=== PATIENT | female | born 1960 | race Caucasian/White ===

== ENCOUNTER 2016-09-11 15:37 | Inpatient (IN) | payer BC ==
[~2016-09-11] VITALS: Ht 149.9 cm; Wt 117.2 kg
[~2016-09-11 15:37] MED LIST: ADVIN25/60 INH; DORZ1SOL6 OPB; FLNIN NAE; MULT-506 PO; OSCAL D PO; PRLSR20 PO; ZIOPTAN OPB
[2016-09-11] MEDS ORDERED: LORAZEPAM 1 MG TAB SL STA (16:09)
[2016-09-11] MEDS ORDERED: CALC200T PO (16:20)
[2016-09-11] MEDS ORDERED: FLNIN NAE (16:21)
[2016-09-11] MEDS ORDERED: HALOPERIDOL LACTATE 5 MG/ML 1 ML VIAL IM STA (16:55)
[2016-09-11 17:27] LABS: BASO % 0.3 %; BASO ABS # 0.05 K/uL (0-0.2); COMPLETE YES; EOS % 1.3 %; HEMATOCRIT 44.7 % (37-47); IG% 0.3 %; LYMPH % 16.4 %; LYMPH ABS # 2.61 K/uL (1.2-3.4); MEAN CELL VOLUME 76.1 fL (80-100); MEAN CORPUSCULAR HEMOGLOBIN 25.6 pg (25-34); MEAN CORPUSCULAR HGB CONC 33.6 g/dl (32-36); MEAN PLATELET VOLUME 9.6 fL (7.4-10.4); NEUT % 74.7 %; PLATELET COUNT 298 K/uL (130-400); RED BLOOD COUNT 5.87 M/uL (4.2-5.4); WHITE BLOOD COUNT 15.88 K/uL (4.8-10.8)
[2016-09-11 17:42] LABS: INR 1.1 (0.9-1.1); PARTIAL THROMBOPLASTIN RATIO 1.3; PROTHROMBIN TIME (PATIENT) 11.4 SECONDS (9.0-12.0)
[2016-09-11 17:56] LABS: ALT/SGPT 42 U/L (12-78); BLOOD UREA NITROGEN 21 mg/dl (7-18); BUN/CREATININE RATIO 23.3 (10-20); CALCIUM 9.7 mg/dl (8.5-10.1); CARBON DIOXIDE 21 mmol/L (21-32); CHLORIDE 101 mmol/L (98-107); CREATININE 0.91 mg/dl (0.60-1.20); GLUCOSE 90 mg/dl (70-99); POTASSIUM 3.7 mmol/L (3.5-5.1); SODIUM 136 mmol/L (136-145)
--- NOTE | 2016-09-11 17:57 | DIAGNOSTIC IMAGING REPORT ---
CT OF THE HEAD WITHOUT CONTRAST CLINICAL HISTORY: Overdose. COMPARISON STUDY: No previous studies for comparison. CT DOSE: 767.83 mGy.cm TECHNIQUE: Helical axial images of the head were obtained without IV contrast. Automated exposure control was utilized for the study. FINDINGS: No acute intracranial hemorrhage, midline shift or mass effect is present. Study is mildly compromised by motion artifact. Ventricular system is normal. Basilar cisterns are patent. There are no extra-axial collections. Francis-white differentiation is maintained. There are no findings to suggest acute dural sinus thrombosis or acute territorial infarct. There are no significant calvarial abnormalities. Visualized portions of the sinuses and mastoid air cells are clear. IMPRESSION: No acute intracranial findings. Electronically signed by: Sylvain Nixon M.D. 09/11/2016 5:56 PM Dictated Date/Time: 09/11/2016 5:54 PM
[2016-09-11 17:59] LABS: ALKALINE PHOSPHATASE 126 U/L (45-117); AST/SGOT 46 U/L (15-37)
[2016-09-11 18:00] LABS: ACETAMINOPHEN < 2 ug/ml (10-30)
--- NOTE | 2016-09-11 18:12 | DIAGNOSTIC IMAGING REPORT ---
CHEST ONE VIEW PORTABLE CLINICAL HISTORY: Overdose COMPARISON STUDY: Chest radiograph August 12, 2012. FINDINGS: Lung volumes are at the lower limits of normal. This is unchanged. There is no evidence of pulmonary edema. No consolidation is present. There is no pneumothorax or pleural effusion. Cardiomediastinal silhouette is stable. IMPRESSION: No acute cardiopulmonary findings. Electronically signed by: Sylvain Nixon M.D. 09/11/2016 6:11 PM Dictated Date/Time: 09/11/2016 6:09 PM
--- NOTE | 2016-09-11 18:32 | EMERGENCY ROOM VISIT NOTE ---
History Report prepared by John: Caleb Portillo Under the Supervision of: Mendez ValleO. First contact with patient: 16:01 Chief Complaint: MENTAL HEALTH EVALUATION Stated Complaint: MENTAL HEALTH History of Present Illness The patient is a 56 year old female who presents to the Emergency Room with complaints of sudden psychosis beginning one day prior to arrival. She associates fatigue for the past several weeks with today's symptoms. The patient states she and her fiance had an engagement part at the [facility] last evening. She notes her fiance received a phone call that his 84 year old mother , which led him to go out and drink and smoke marijuana. The patient states her fiance returned the [facility] and he in front of her this morning. She notes the police came to the hotel and picked up the body. The patient states she called homes to set up a . She notes the police picked up the wrong person, and they were supposed to scrap picker Forest Lozano, who was not her fiance. As per [facility], the patient was evaluated in the field. She notes the supposed fiance called [facility] to confirm that he was alive and is not her fiance. She states the patient does not have a history of mental illness. The patient notes she takes eye drops for her glaucoma and Prilosec. She notes a history of an appendectomy. The patient denies a headache, chest pain, abdominal pain, nausea, vomiting, recent weight gain or weight loss, recent illness, history of cancer, alcohol or tobacco use, recent injuries, hair falling out, thought of hurting herself, hearing voices, feelings of anxiety and depression, and problems with her thyroid. She states she has not been admitted to the hospital in the past five years. The patient notes it has been a while since she had her eye pressure checked or blood pressure checked. 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 A total of 10 systems reviewed and were otherwise negative. Past Medical & Surgical Medical Problems: (1) Asthma, mild persistent (2) GERD (gastroesophageal reflux disease) (3) Glaucoma (4) S/P appendectomy Surgical Problems: (1) H/O wisdom tooth extraction (2) History of appendectomy Family History Cancer Diabetes mellitus Heart disease Hypertension Social History Smoking Status: Never Smoker Marital Status: single Occupation Status: retired Current/Historical Medications Scheduled Calcium Carbonate-Vitamin D (Oscal 500/200 D-3), 1 TAB PO QAM Dorzolamide Hcl-Timolol Maleat (Cosopt Oph), 1 DROP OPB BID Fluticasone Prop/Salmeterol (Advair Diskus 250/50 60 Dose), 1 PUFFS INH BID Fluticasone Propionate (Fluticasone Propionate), 2 SPRAYS MELY QAM Multivitamin (Multivitamin), 1 TAB PO QAM Omeprazole (Prilosec), 20 MG PO QAM [Zioptan], 1 DROP OPB HS Scheduled PRN Albuterol Sulfate (Proventil Hfa), 2 PUFFS INH Q6H PRN for SOB/Wheezing Allergies Coded Allergies: NO KNOWN DRUG ALLERGIES (Verified Allergy, Unknown, ., 09/11/16) Physical Exam Vital Signs Date Time Temp Pulse Resp B/P Pulse Ox O2 Delivery O2 Flow Rate FiO2 09/11/16 20:36 89 138/119 94 09/11/16 19:11 84 18 139/109 09/11/16 19:03 109 161/99 09/11/16 17:48 96 09/11/16 17:32 102 20 190/108 96 Room Air 09/11/16 15:52 36.8 09/11/16 15:44 106 16 187/136 94 Physical Exam GENERAL: Patient is awake, alert, and in no acute distress. Patient is resting comfortably and showing no signs of anxiety EYES: The conjunctivae are clear. The pupils are round and reactive. EARS, NOSE, MOUTH AND THROAT: The nose is without any evidence of any deformity. Mucous membranes are moist tongue is midline NECK: The neck is nontender and supple. RESPIRATORY: Normal respiratory effort is noted there is no evidence of wheezing rhonchi or rales CARDIOVASCULAR: Regular rate and rhythm noted there no murmurs rubs or gallops normal S1 normal S2 GASTROINTESTINAL: The abdomen is soft. Bowel sounds are present in all quadrants. Abdomen is nontender MUSCULOSKELETAL/EXTREMITIES: There is no evidence of gross deformity full range of motion is noted in the hips and shoulders SKIN: There is no obvious evidence of any rash. There are no petechiae, pallor or cyanosis noted. NEUROLOGIC: Patient is awake alert and oriented x3 strength is symmetric patellar reflexes are 2+ bilaterally PSYCH: Patient was awake, alert, and somewhat anxious appearing. She appears very guarded but currently denying any homicidal or suicidal ideation. Medical Decision & Procedures ER Provider Diagnostic Interpretation: Radiology results as stated below per my review and radiologist interpretation: CHEST ONE VIEW PORTABLE CLINICAL HISTORY: Overdose COMPARISON STUDY: Chest radiograph August 12, 2012. FINDINGS: Lung volumes are at the lower limits of normal. This is unchanged. There is no evidence of pulmonary edema. No consolidation is present. There is no pneumothorax or pleural effusion. Cardiomediastinal silhouette is stable. IMPRESSION: No acute cardiopulmonary findings. Electronically signed by: Sylvain Nixon M.D. 09/11/2016 6:[address] OF THE HEAD WITHOUT CONTRAST CLINICAL HISTORY: Overdose. COMPARISON STUDY: No previous studies for comparison. CT DOSE: 767.83 mGy.cm TECHNIQUE: Helical axial images of the head were obtained without IV contrast. Automated exposure control was utilized for the study. FINDINGS: No acute intracranial hemorrhage, midline shift or mass effect is present. Study is mildly compromised by motion artifact. Ventricular system is normal. Basilar cisterns are patent. There are no extra-axial collections. Francis-white differentiation is maintained. There are no findings to suggest acute dural sinus thrombosis or acute territorial infarct. There are no significant calvarial abnormalities. Visualized portions of the sinuses and mastoid air cells are clear. IMPRESSION: No acute intracranial findings. Electronically signed by: Sylvain Nixon M.D. 09/11/2016 5:56 PM Laboratory Results 09/11/16 17:17 Red Blood Count 5.87, Mean Corpuscular Volume 76.1, Mean Corpuscular Hemoglobin 25.6, Mean Corpuscular Hemoglobin Concent 33.6, Mean Platelet Volume 9.6, Neutrophils (%) (Auto) 74.7, Lymphocytes (%) (Auto) 16.4, Monocytes (%) (Auto) 7.0, Eosinophils (%) (Auto) 1.3, Basophils (%) (Auto) 0.3, Neutrophils # (Auto) 11.87, Lymphocytes # (Auto) 2.61, Monocytes # (Auto) 1.11, Eosinophils # (Auto) 0.20, Basophils # (Auto) 0.05 09/11/16 17:17 Test 09/11/16 17:17 09/11/16 17:21 09/11/16 20:04 White Blood Count 15.88 K/uL (4.8-10.8) Red Blood Count 5.87 M/uL (4.2-5.4) Hemoglobin 15.0 g/dL (12.0-16.0) Hematocrit 44.7 % (37-47) Mean Corpuscular Volume 76.1 fL (80-100) Mean Corpuscular Hemoglobin 25.6 pg (25-34) Mean Corpuscular Hemoglobin Concent 33.6 g/dl (32-36) Platelet Count 298 K/uL (130-400) Mean Platelet Volume 9.6 fL (7.4-10.4) Neutrophils (%) (Auto) 74.7 % Lymphocytes (%) (Auto) 16.4 % Monocytes (%) (Auto) 7.0 % Eosinophils (%) (Auto) 1.3 % Basophils (%) (Auto) 0.3 % Neutrophils # (Auto) 11.87 K/uL (1.4-6.5) Lymphocytes # (Auto) 2.61 K/uL (1.2-3.4) Monocytes # (Auto) 1.11 K/uL (0.11-0.59) Eosinophils # (Auto) 0.20 K/uL (0-0.5) Basophils # (Auto) 0.05 K/uL (0-0.2) RDW Standard Deviation 42.0 fL (36.4-46.3) RDW Coefficient of Variation 15.1 % (11.5-14.5) Immature Granulocyte % (Auto) 0.3 % Immature Granulocyte # (Auto) 0.04 K/uL (0.00-0.02) Prothrombin Time 11.4 SECONDS (9.0-12.0) Prothromb Time International Ratio 1.1 (0.9-1.1) Activated Partial Thromboplast Time 34.6 SECONDS (21.0-31.0) Partial Thromboplastin Ratio 1.3 D-Dimer 360 ug/L FEU (0-500) Anion Gap 14.0 mmol/L (3-11) Est Creatinine Clear Calc Drug Dose 75.7 ml/min Estimated GFR () 80.6 Estimated GFR (Non- 69.5 BUN/Creatinine Ratio 23.3 (10-20) Osmolality 291 mOsm/kg (280-300) Calcium Level 9.7 mg/dl (8.5-10.1) Total Bilirubin 0.7 mg/dl (0.2-1) Direct Bilirubin 0.2 mg/dl (0-0.2) Aspartate Amino Transf (AST/SGOT) 46 U/L (15-37) Alanine Aminotransferase (ALT/SGPT) 42 U/L (12-78) Alkaline Phosphatase 126 U/L (45-117) Total Creatine Kinase 788 U/L (26-192) Creatine Kinase MB 19.7 ng/ml (0.5-3.6) Creatine Kinase MB Ratio (0-3.0) Troponin I < 0.015 ng/ml (0-0.045) Total Protein 7.9 gm/dl (6.4-8.2) Albumin 4.0 gm/dl (3.4-5.0) Lipase 181 U/L (73-393) Free Thyroxine 1.22 ng/dl (0.80-1.60) Salicylates Level < 1.7 mg/dl (2.8-20) Acetaminophen Level < 2 ug/ml (10-30) Ethyl Alcohol mg/dL < 3.0 mg/dl (0-3) Bedside Glucose 92 mg/dl (70-90) Laboratory results per my review. Medications Administered Medications (Trade) Dose Ordered Sig/Kylie Route Start Time Stop Time Status Last Admin Dose Admin Lorazepam (Ativan Tab) 1 mg NOW STAT SL 09/11/16 16:09 09/11/16 16:10 DC 09/11/16 17:15 1 MG Metoprolol Tartrate (Lopressor Iv) 15 mg NOW STAT IV 09/11/16 18:53 09/11/16 18:54 DC 09/11/16 19:03 15 MG ECG Indication: altered mental status Rate (beats per minute): 102 Rhythm: sinus tachycardia Findings: no ectopy, other (poor R wave progression) Comparison ECG Date: 08/12/2012 Change: Changes are new. ED Course 1608: The patient was evaluated in room A6. A complete history and physical examination were performed. 1609: Ordered Ativan Tab 1 mg SL. 1655: Ordered Haldol Inj 10 mg IM. 1853: Ordered Lopressor Iv 15 mg IV. 1854: I spoke to Andrew Vallejo (Hospitalist) about the patient's case, and she will follow the patient for further evaluation. Medical Decision Etiologies such as mood disorder, infection, hypoglycemia, electrolyte abnormalities, cardiac sources, intracerebral event, toxicologic, neurologic, as well as others were entertained. Nursing notes reviewed. Additional history is obtained from the [facility] delegate. The patient is a 56-year-old female who presented to the emergency department with a 302 petition for mental health evaluation. The patient had significant psychotic features as well as very poor insight into her overall condition at this time. She had no focal neurologic deficits. She was found have tachycardia and hypertension. Her EKG showed some vague changes compared to previous. The patient does not have a history of psychiatric problems in the past. Given her age and lack of history consistent with psychiatric disease I felt this could be consistent with medical condition. I discussed the patient's laboratory and radiographic studies with her. She was treated with Ativan. She was also treated with beta blockers for elevated blood pressure. I'm unsure at this time if this represents hypertensive encephalopathy or possible he some other underlying issue that is causing this presentation. It still could represent a psychiatric condition however given her laboratory abnormalities I did not feel that she would be medically cleared for formal psychiatric evaluation. For this reason I discussed her case with the on-call Andrew hospitalist group. They have agreed to evaluate the patient in the emergency apartment for further management and disposition. Consults Time Called: [id number] Consulting Physician: Andrew Vallejo (Hospitalist) Returned Call: 1854 I spoke to Andrew Vallejo (Hospitalist) about the patient's case, and she will follow the patient for further evaluation. Impression Primary Impression: Altered mental status Additional Impressions: Psychosis Hypertension Hypertensive encephalopathy Elevated CPK Abnormal EKG Scribe Attestation The scribe's documentation has been prepared under my direction and personally reviewed by me in its entirety. I confirm that the note above accurately reflects all work, treatment, procedures, and medical decision making performed by me. Departure Information Dispostion Being Evaluated By Hospitalist (Andrew Vallejo (Hospitalist)) Referrals Didi Livingston M.D. (PCP) Problem Qualifiers
[2016-09-11] MEDS ORDERED: METOPROLOL TARTRATE 1 MG/ML VIAL IV STA (18:53)
[2016-09-11] MEDS ORDERED: ONDANSETRON INJ 2 MG/ML 2 ML VIAL IV PRN (20:15)
[2016-09-11] MEDS ORDERED: CLONIDINE HCL 0.1 MG TAB PO PRN (20:15)
[2016-09-11] MEDS ORDERED: HALOPERIDOL LACTATE 5 MG/ML 1 ML VIAL IM PRN (20:15)
[2016-09-11] MEDS ORDERED: LORAZEPAM 2 MG/ML 1 ML VIAL IV PRN (20:15)
[2016-09-11] MEDS ORDERED: LORAZEPAM INJ 0.5 MG in SYRINGE 0.75 ML IV PRN (20:45)
[2016-09-11] MEDS ORDERED: ALBUAER INH (20:46)
[2016-09-11] MEDS ORDERED: ALBUTEROL HFA 8 GM INHALER INH PRN (21:00)
[2016-09-11 21:02] VITALS: BP 141/92; PULSE 90; TEMP 36.5; O2SAT 97; Ht 149.9 cm; Wt 117.2 kg
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
[2016-09-11] MEDS: SODIUM CHLORIDE 0.9% 1000ML 1,000 ML IV SCH (21:48)
[2016-09-11] MEDS: FLUTICASONE/SALMETEROL 250/50 (ADVAIR) 14 PUFF/1 INHALER INH SCH (22:47)
[2016-09-11] MEDS: DORZOLAMIDE/TIMOLOL 22.3/6.8MG/ML 10 ML BTL OPB SCH (22:47)
[2016-09-11 23:42] VITALS: BP 126/82; PULSE 90; TEMP 36.8; O2SAT 96
[2016-09-12] VITALS (7 sets, daily range): BP systolic 127–169; BP diastolic 75–106; PULSE 78–96; TEMP 36.4–36.8; O2SAT 95–98
[2016-09-12 02:50] LABS: CHOLESTEROL 149 mg/dl (0-200); CHOLESTEROL/HDL RATIO 2.4; CKMB/CK RATIO 2.3 (0-3.0); HDL CHOLESTEROL 63 mg/dl; LDL CHOLESTEROL CALCULATED 64 mg/dl; TRIGLYCERIDES 112 mg/dl (0-150); VERY LOW DENSITY LIPOPROT CALC 22 mg/dl
[2016-09-12 04:08] LABS: URINE APPEARANCE CLEAR (CLEAR); URINE BILIRUBIN NEG (NEG); URINE COLOR YELLOW; URINE EPITHELIAL CELL AUTO >30 /lpf (0-5); URINE NITRITE NEG (NEG); URINE PH 5.5 (4.5-7.5); URINE SPECIFIC GRAVITY 1.011 (1.000-1.030); UROBILINOGEN NEG (NEG); ZZUR CULT IF INDIC CLEAN CATCH YES
[2016-09-12 04:12] LABS: MANUAL MICROSCOPIC REQUIRED? NO; REVIEW REQ? YES
[2016-09-12] MEDS: SODIUM CHLORIDE 0.9% 1000ML 1,000 ML IV SCH ×3 (04:18→19:51)
[2016-09-12 04:39] LABS: BENZODIAZEPINE, URINE NEG (NEG); COCAINE,URINE NEG (NEG); PHENCYCLIDINE, URINE NEG (NEG)
[2016-09-12] MEDS: FLUTICASONE/SALMETEROL 250/50 (ADVAIR) 14 PUFF/1 INHALER INH SCH ×2 (07:20→19:54)
[2016-09-12] MEDS: CIPROFLOXACIN / D5W 400 MG in PREMIXED IN D5W 200 ML IV SCH ×2 (07:20→19:51)
[2016-09-12] MEDS: CALCIUM 600MG + VIT D 400 IU TAB PO SCH (07:21)
[2016-09-12] MEDS: MULTIVITAMIN TAB PO SCH (07:21)
[2016-09-12] MEDS: FLUTICASONE PROPIONATE NA SPR 16 GM BTL NAE SCH (07:21)
[2016-09-12] MEDS: PANTOprazole SOD 40 MG TAB PO SCH (07:21)
[2016-09-12] MEDS: DORZOLAMIDE/TIMOLOL 22.3/6.8MG/ML 10 ML BTL OPB SCH ×2 (07:22→19:54)
[2016-09-12 08:42] LABS: HEMATOCRIT 41.9 % (37-47); MEAN CELL VOLUME 76.5 fL (80-100); MEAN CORPUSCULAR HEMOGLOBIN 25.2 pg (25-34); MEAN CORPUSCULAR HGB CONC 32.9 g/dl (32-36); MEAN PLATELET VOLUME 9.6 fL (7.4-10.4); PLATELET COUNT 259 K/uL (130-400); RED BLOOD COUNT 5.48 M/uL (4.2-5.4); WHITE BLOOD COUNT 12.39 K/uL (4.8-10.8)
[2016-09-12] MEDS ORDERED: CALCIUM 600MG + VIT D 400 IU TAB PO SCH (09:00)
[2016-09-12 09:29] LABS: BUN/CREATININE RATIO 21.3 (10-20); CALCIUM 8.5 mg/dl (8.5-10.1); CREATININE 0.63 mg/dl (0.60-1.20); POTASSIUM 3.8 mmol/L (3.5-5.1)
[2016-09-12] MEDS ORDERED: PERFLUTREN LIPID MICROSPHERE (DEFINITY) IV ONE (10:07)
[2016-09-12 11:02] LABS: CKMB/CK RATIO 2.4 (0-3.0)
--- NOTE | 2016-09-12 12:53 | Progress Note ---
Internal Med Progress Note Date of Service: Sep 12, 2016. Provider Documentation: SUBJECTIVE: The patient was seen and examined Feels fine Denies any Chest pain,palpitation,sob No abdominal pain,nausea and or vomiting No neurological symptoms Still has Psychiatric symptoms OBJECTIVE: Vital Signs-as noted below Exam: General-No distress at rest Eyes-no distress ENT-normal Neck-normal Lungs-clear to auscultate bilaterally Heart-Regular,no murmur appreciated Abdomen-Benign,no bertrand,bowel sound present Extremities-Trace edema bilaterally Neuro-AAOx3 Lab data as noted below. ASSESSMENT & PLAN: Acute Psychosis -no prior psych history; pt has 302 order -no h/o any Drug use and Tox Screen is negative -doubt any infective process but WCC is increased at 15K -CT head is negative -CXR no evidence of consolidation -Blood and Urine Culture pending -consider one-on-one if pt displays agitation or self harm -consult psychDr. Villavicencio-pending input -Medically stable HYPERTENSIVE URGENCY -no h/o HTN -SPR >190 in ER -pt received Lopressor in ED -started on clonidine PRN -BP remains stable ABNORMAL EKG -EKG sinus tachy with T wave flattening in anterior leads and poor R wave progression with prolonged QTc (477) -CKMB 19.7; Trop negative -check serial cardiac enzymes-negative -doubt any ACS -no CP -Await ECHO ELEVATED CPK -CPK 788; ? mild rhabdo, drug induced, etc -start IVF -CPK is trending down ASTHMA, MILD PERSISTENT -no evidence of acute exacerbation -no wheezing and or SOB GERD -cont PPI GLAUCOMA -cont dorzolamide and Zioptan DVT PROPHYLAXIS -SCDs CODE STATUS -FULL CODE DISPO Will need to go to Psyche Floor Vital Signs: Date Time Temp Pulse Resp B/P Pulse Ox O2 Delivery O2 Flow Rate FiO2 09/12/16 11:41 36.7 84 20 135/83 96 Room Air 09/12/16 07:20 36.5 78 20 127/77 95 Room Air 09/12/16 07:15 Room Air 09/12/16 04:00 36.4 80 20 133/82 96 Room Air 09/12/16 04:00 Room Air 09/12/16 00:00 Room Air 09/11/16 23:42 36.8 90 20 126/82 96 Room Air 09/11/16 21:02 36.5 90 20 141/92 97 Room Air 09/11/16 20:36 89 138/119 94 09/11/16 19:11 84 18 139/109 09/11/16 19:03 109 161/99 09/11/16 17:48 96 09/11/16 17:32 102 20 190/108 96 Room Air 09/11/16 15:52 36.8 09/11/16 15:44 106 16 187/136 94 Lab Results: Results Past 24 Hours Test 09/11/16 17:17 09/11/16 17:21 09/12/16 02:10 09/12/16 03:30 Range/Units White Blood Count 15.88 4.8-10.8 K/uL Red Blood Count 5.87 4.2-5.4 M/uL Hemoglobin 15.0 12.0-16.0 g/dL Hematocrit 44.7 37-47 % Mean Corpuscular Volume 76.1 80-100 fL Mean Corpuscular Hemoglobin 25.6 25-34 pg Mean Corpuscular Hemoglobin Concent 33.6 32-36 g/dl Platelet Count 298 130-400 K/uL Mean Platelet Volume 9.6 7.4-10.4 fL Neutrophils (%) (Auto) 74.7 % Lymphocytes (%) (Auto) 16.4 % Monocytes (%) (Auto) 7.0 % Eosinophils (%) (Auto) 1.3 % Basophils (%) (Auto) 0.3 % Neutrophils # (Auto) 11.87 1.4-6.5 K/uL Lymphocytes # (Auto) 2.61 1.2-3.4 K/uL Monocytes # (Auto) 1.11 0.11-0.59 K/uL Eosinophils # (Auto) 0.20 0-0.5 K/uL Basophils # (Auto) 0.05 0-0.2 K/uL RDW Standard Deviation 42.0 36.4-46.3 fL RDW Coefficient of Variation 15.1 11.5-14.5 % Immature Granulocyte % (Auto) 0.3 % Immature Granulocyte # (Auto) 0.04 0.00-0.02 K/uL Prothrombin Time 11.4 9.0-12.0 SECONDS Prothromb Time International Ratio 1.1 0.9-1.1 Activated Partial Thromboplast Time 34.6 21.0-31.0 SECONDS Partial Thromboplastin Ratio 1.3 D-Dimer 360 0-500 ug/L FEU Sodium Level 136 136-145 mmol/L Potassium Level 3.7 3.5-5.1 mmol/L Chloride Level 101 98-107 mmol/L Carbon Dioxide Level 21 21-32 mmol/L Anion Gap 14.0 3-11 mmol/L Blood Urea Nitrogen 21 7-18 mg/dl Creatinine 0.91 0.60-1.20 mg/dl Est Creatinine Clear Calc Drug Dose 75.7 ml/min Estimated GFR () 80.6 Estimated GFR (Non- 69.5 BUN/Creatinine Ratio 23.3 10-20 Random Glucose 90 70-99 mg/dl Osmolality 291 280-300 mOsm/kg Calcium Level 9.7 8.5-10.1 mg/dl Total Bilirubin 0.7 0.2-1 mg/dl Direct Bilirubin 0.2 0-0.2 mg/dl Aspartate Amino Transf (AST/SGOT) 46 15-37 U/L Alanine Aminotransferase (ALT/SGPT) 42 12-78 U/L Alkaline Phosphatase 126 45-117 U/L Total Creatine Kinase 788 465 26-192 U/L Creatine Kinase MB 19.7 10.8 0.5-3.6 ng/ml Creatine Kinase MB Ratio 2.3 0-3.0 Troponin I < 0.015 < 0.015 0-0.045 ng/ml Total Protein 7.9 6.4-8.2 gm/dl Albumin 4.0 3.4-5.0 gm/dl Lipase 181 73-393 U/L Free Thyroxine 1.22 0.80-1.60 ng/dl Salicylates Level < 1.7 2.8-20 mg/dl Acetaminophen Level < 2 10-30 ug/ml Ethyl Alcohol mg/dL < 3.0 0-3 mg/dl Rapid Plasma Reagin NONREACTIVE NONREACT Bedside Glucose 92 70-90 mg/dl Triglycerides Level 112 0-150 mg/dl Cholesterol Level 149 0-200 mg/dl HDL Cholesterol 63 mg/dl LDL Cholesterol, Calculated 64 mg/dl VLDL Cholesterol, Calculated 22 mg/dl Cholesterol/HDL Ratio 2.4 Urine Color YELLOW Urine Appearance CLEAR CLEAR Urine pH 5.5 4.5-7.5 Urine Specific [place] 1.011 1.000-1.030 Urine Protein NEG NEG Urine Glucose (UA) NEG NEG Urine Ketones 2+ NEG Urine Occult Blood 2+ NEG Urine Nitrite NEG NEG Urine Bilirubin NEG NEG Urine Urobilinogen NEG NEG Urine Leukocyte Esterase SMALL NEG Urine WBC (Auto) 10-30 0-5 /hpf Urine RBC (Auto) 10-30 0-4 /hpf Urine Hyaline Casts (Auto) 5-10 0-5 /lpf Urine Epithelial Cells (Auto) >30 0-5 /lpf Urine Bacteria (Auto) NEG NEG Urine Renal Epithelial Cells 10-20 0-5 /lpf Urine Opiates Screen NEG NEG Urine Methadone, Qualitative NEG NEG Urine Barbiturates NEG NEG Urine Phencyclidine (PCP) Level NEG NEG Ur Amphetamine/Methamphetamine NEG NEG MDMA (Ecstasy) Screen NEG NEG Urine Benzodiazepines Screen NEG NEG Urine Cocaine Metabolite NEG NEG Urine Marijuana (THC) NEG NEG Test 09/12/16 08:33 09/12/16 09:45 Range/Units White Blood Count 12.39 4.8-10.8 K/uL Red Blood Count 5.48 4.2-5.4 M/uL Hemoglobin 13.8 12.0-16.0 g/dL Hematocrit 41.9 37-47 % Mean Corpuscular Volume 76.5 80-100 fL Mean Corpuscular Hemoglobin 25.2 25-34 pg Mean Corpuscular Hemoglobin Concent 32.9 32-36 g/dl RDW Standard Deviation 42.3 36.4-46.3 fL RDW Coefficient of Variation 15.1 11.5-14.5 % Platelet Count 259 130-400 K/uL Mean Platelet Volume 9.6 7.4-10.4 fL Sodium Level 141 136-145 mmol/L Potassium Level 3.8 3.5-5.1 mmol/L Chloride Level 108 98-107 mmol/L Carbon Dioxide Level 23 21-32 mmol/L Anion Gap 10.0 3-11 mmol/L Blood Urea Nitrogen 13 7-18 mg/dl Creatinine 0.63 0.60-1.20 mg/dl Est Creatinine Clear Calc Drug Dose 109.2 ml/min Estimated GFR () 114.6 Estimated GFR (Non- 98.9 BUN/Creatinine Ratio 21.3 10-20 Random Glucose 107 70-99 mg/dl Calcium Level 8.5 8.5-10.1 mg/dl Total Creatine Kinase 340 26-192 U/L Creatine Kinase MB 8.3 0.5-3.6 ng/ml Creatine Kinase MB Ratio 2.4 0-3.0 Troponin I < 0.015 0-0.045 ng/ml Microbiology Results 09/11/16 Blood Culture, Received Pending 09/11/16 Blood Culture, Received Pending 09/12/16 Urine Culture, Received Pending
--- NOTE | 2016-09-12 13:12 | ECHOCARDIOGRAM REPORT ---
*NOTICE TO RECEIVING CONSTITUTION PARTY AGENCY This information is strictly Confidential and protected under [place] law. [place] law prohibits you from making any further disclosure of this information unless further disclosure is expressly permitted by the written consent of the person to whom it pertains or is authorized by law. A general authorization for the release of medical or other information is not sufficient for this purpose. Hospital accepts no responsibility if the information is made available to any other person, INCLUDING THE PATIENT. Interpretation Summary * Name: BRIAN HILL Study Date: 09/12/2016 09:48 AM BP: 133/82 mmHg * Patient Location: .2T\S\S238\S\1 HR: 75 * : 1960 (M/d/yyy) Gender: Female Height: 59 in * Age: 56 yrs Ethnicity: CA Weight: 249 lb * Ordering Physician: Gricelda Jones * Referring Physician: Self, Referred * Performed By: Irwin Ramirez RDCS * * Reason For Study: EKG changes * BSA: 2.0 m2 * -- Conclusions -- * There is moderate concentric left ventricular hypertrophy. * Left ventricular systolic function is normal. * Ejection Fraction = 60-65%. * The left ventricular wall motion is normal. * The right ventricular systolic function is normal. * The left atrial size is normal. * Right atrial size is normal. * No significant valvular pathology Procedure Details * A complete two-dimensional transthoracic echocardiogram was performed (2D, M-mode, Doppler and color flow Doppler). * The study was technically difficult. * The study was technically difficult, but visualization was adequate with the administration of Definity ultrasound contrast. * There were technical limitations due to patient'sbody habitus * A contrast injection of Definity was performed to improve assessment of LV function. * Contrast was injected into an intravenous site in the left arm. * One vial of Definity ultrasound contrast was diluted in normal saline to a total volume of 10 ml. A total of '3' ml of solution was administered during imaging. * Lot # [id number] of Definity utilized for procedure. * Expiration date 1FEB. * The attending nurse who injected the contrast agent was NANY Boyle. Left Ventricle * The left ventricle is normal in size. * There is moderate concentric left ventricular hypertrophy. * Left ventricular systolic function is normal. * Ejection Fraction = 60-65%. * The left ventricular wall motion is normal. Right Ventricle * The right ventricle is normal size. * The right ventricular systolic function is normal. Atria * The left atrial size is normal. * Right atrial size is normal. * The interatrial septum is intact with no evidence for an atrial septal defect. Mitral Valve * There is moderate mitral annular calcification. * The mitral valve leaflets appear thickened, but open well. * Significant mitral regurgitation is absent. Tricuspid Valve * The tricuspid valve is not well visualized. * Significant tricuspid regurgitation is absent. Aortic Valve * The aortic valve is tricuspid. The leaflet thickness if normal. There is no aortic stenosis, and no significant insufficiency. * The aortic valve opens well. * There is no significant aortic regurgitation. Pulmonic Valve * The pulmonic valve is not well visualized. Great Vessels * The aortic root and proximal ascending aorta are normal sized. Pericardium/Pleural * There is no pericardial effusion. MMode 2D Measurements and Calculations IVSd 1.2 cm IVSs 1.6 cm LVIDd 3.9 cm LVIDs 2.5 cm LVPWd 1.3 cm LVPWs 1.7 cm IVS/LVPW 0.89 FS 36.0 % EDV(Teich) 67.2 ml ESV(Teich) 22.7 ml EF(Teich) 66.2 % EDV(cubed) 60.7 ml ESV(cubed) 15.9 ml EF(cubed) 73.8 % % IVS thick 32.0 % % LVPW thick 26.5 % LV mass(C)d 172.3 grams LV mass(C)dI 85.1 grams/m\S\2 LV mass(C)s 146.0 grams LV mass(C)sI 72.1 grams/m\S\2 SV(Teich) 44.5 ml SI(Teich) 22.0 ml/m\S\2 SV(cubed) 44.8 ml SI(cubed) 22.1 ml/m\S\2 Ao root diam 3.1 cm Ao root area 7.3 cm\S\2 ACS 2.0 cm LA dimension 3.8 cm asc Aorta Diam 3.0 cm LA/Ao 1.3 LVOT diam 1.9 cm LVOT area 2.9 cm\S\2 LVAd ap4 25.4 cm\S\2 LVLd ap4 7.5 cm EDV(MOD-sp4) 72.0 ml LVAs ap4 13.2 cm\S\2 LVLs ap4 6.0 cm ESV(MOD-sp4) 24.0 ml EF(MOD-sp4) 66.7 % LVAd ap2 26.0 cm\S\2 LVLd ap2 6.9 cm EDV(MOD-sp2) 82.0 ml LVAs ap2 13.6 cm\S\2 LVLs ap2 6.0 cm ESV(MOD-sp2) 28.0 ml EF(MOD-sp2) 65.9 % SV(MOD-sp4) 48.0 ml SI(MOD-sp4) 23.7 ml/m\S\2 SV(MOD-sp2) 54.0 ml SI(MOD-sp2) 26.7 ml/m\S\2 Doppler Measurements and Calculations MV E max aleja 70.1 cm/sec MV A max aleja 86.4 cm/sec MV E/A 0.81 MV dec time 0.23 sec Ao V2 max 184.6 cm/sec Ao max PG 13.6 mmHg Ao max PG (full) 8.2 mmHg ALIA(V,A) 1.8 cm\S\2 ALIA(V,D) 1.8 cm\S\2 LV V1 max PG 5.4 mmHg LV V1 max 116.6 cm/sec PA V2 max 130.3 cm/sec PA max PG 6.8 mmHg
--- NOTE | 2016-09-12 13:21 | Psychiatric Consultation ---
Consultation Identifying Data Ms. Jessica is a 56 yo female who lives alone in [place]. She was brought to the hospital on a 302 warrant by police for inability to care for self due to psychotic symptoms. She was admitted medically for hypertensive urgency. Chief Complaint "I miss him but our love continues". History of Present Illness The patient is currently maintaining the delusions though timeline varies-- states her fiance had an engagement republican at the [facility] 2 days prior to admission when he got a call that his mother . The patient states her fiance used ETOH and MJ and that he in front of her this morning. She notes the police came to the hotel and picked up the body. [facility] and [facility] police department were involved in confirming that her reported fiance, Cody Lozano was alive and he denied engagement. Liaison attempting to contact him for collateral. Additional email correspondence is on her medical chart that there were multiple calls about her in 2016 for similar behavior but no clear documentation. She apparently is an acquaintance of a police officers and called her directly (without being given her number) about not sleeping well and described placing a camera outside of her window but didn't necessarily want police to investigate. She reportedly expressed beliefs about a 10 yo sending her letter or homeless people wandering near her house to smoke MJ and talk about her. 302 petition and warrant were reviewed. Petitioner is reworker--also lists hallucinations and paranoia in addition to poor self care leading up to hospitalization, reportedly not eating or sleeping for over 48 hours due to grief. There were also beliefs expressed that her home blew up, though later in conversation patient told me she still has her home. Also on 302 petition were statements about her wanting to travel to [place] for an autopsy on her fiance. QTc has been 454-477, CPK slightly elevated but trending down, nothing significant on tox. She denies SI/HI/rodriguez. She denies depression. Past Psychiatric History Current OP Treatment: no current treatment Prior OP Treatment: no prior treatment (1) Hypertensive encephalopathy (2) Hypertension (3) Asthma, mild persistent (4) Elevated CPK (5) GERD (gastroesophageal reflux disease) (6) Glaucoma (7) H/O wisdom tooth extraction (8) History of appendectomy Allergies Allergies: Coded Allergies: NO KNOWN DRUG ALLERGIES (Verified Allergy, Unknown, ., 09/11/16) Home Medications Scheduled Calcium Carbonate-Vitamin D (Oscal 500/200 D-3), 1 TAB PO QAM Dorzolamide Hcl-Timolol Maleat (Cosopt Oph), 1 DROP OPB BID Fluticasone Prop/Salmeterol (Advair Diskus 250/50 60 Dose), 1 PUFFS INH BID Fluticasone Propionate (Fluticasone Propionate), 2 SPRAYS MELY QAM Multivitamin (Multivitamin), 1 TAB PO QAM Omeprazole (Prilosec), 20 MG PO QAM [Zioptan], 1 DROP OPB HS Scheduled PRN Albuterol Sulfate (Proventil Hfa), 2 PUFFS INH Q6H PRN for SOB/Wheezing Family History Cancer Diabetes mellitus Heart disease Hypertension denies family psych history Alcohol Use Alcohol Use In Past 12 Months: No Substance History denies [facility] Education: graduated from high school Work History: retired from [employer] Relationship History: never Children: no Spiritual Affiliation: "I believe in [facility]" Legal History: none Abuse History: none Review of Systems Psych: denies symptoms other than stated above Constitutional: denied Cardiovascular: denied GI: denied Neurologic: denied Remainder of 10 body systems also reviewed and denied other than noted above. Examination Vital Signs Vital Signs Past 12 Hours Date Time Temp Pulse Resp B/P Pulse Ox O2 Delivery O2 Flow Rate FiO2 09/12/16 11:41 36.7 84 20 135/83 96 Room Air 09/12/16 07:20 36.5 78 20 127/77 95 Room Air 09/12/16 07:15 Room Air 09/12/16 04:00 36.4 80 20 133/82 96 Room Air 09/12/16 04:00 Room Air Laboratory Results Last 24 Hours Test 09/11/16 17:17 09/11/16 17:21 09/12/16 02:10 09/12/16 03:30 White Blood Count 15.88 K/uL Red Blood Count 5.87 M/uL Hemoglobin 15.0 g/dL Hematocrit 44.7 % Mean Corpuscular Volume 76.1 fL Mean Corpuscular Hemoglobin 25.6 pg Mean Corpuscular Hemoglobin Concent 33.6 g/dl Platelet Count 298 K/uL Mean Platelet Volume 9.6 fL Neutrophils (%) (Auto) 74.7 % Lymphocytes (%) (Auto) 16.4 % Monocytes (%) (Auto) 7.0 % Eosinophils (%) (Auto) 1.3 % Basophils (%) (Auto) 0.3 % Neutrophils # (Auto) 11.87 K/uL Lymphocytes # (Auto) 2.61 K/uL Monocytes # (Auto) 1.11 K/uL Eosinophils # (Auto) 0.20 K/uL Basophils # (Auto) 0.05 K/uL RDW Standard Deviation 42.0 fL RDW Coefficient of Variation 15.1 % Immature Granulocyte % (Auto) 0.3 % Immature Granulocyte # (Auto) 0.04 K/uL Prothrombin Time 11.4 SECONDS Prothromb Time International Ratio 1.1 Activated Partial Thromboplast Time 34.6 SECONDS Partial Thromboplastin Ratio 1.3 D-Dimer 360 ug/L FEU Sodium Level 136 mmol/L Potassium Level 3.7 mmol/L Chloride Level 101 mmol/L Carbon Dioxide Level 21 mmol/L Anion Gap 14.0 mmol/L Blood Urea Nitrogen 21 mg/dl Creatinine 0.91 mg/dl Est Creatinine Clear Calc Drug Dose 75.7 ml/min Estimated GFR () 80.6 Estimated GFR (Non- 69.5 BUN/Creatinine Ratio 23.3 Random Glucose 90 mg/dl Osmolality 291 mOsm/kg Calcium Level 9.7 mg/dl Total Bilirubin 0.7 mg/dl Direct Bilirubin 0.2 mg/dl Aspartate Amino Transf (AST/SGOT) 46 U/L Alanine Aminotransferase (ALT/SGPT) 42 U/L Alkaline Phosphatase 126 U/L Total Creatine Kinase 788 U/L 465 U/L Creatine Kinase MB 19.7 ng/ml 10.8 ng/ml Creatine Kinase MB Ratio 2.3 Troponin I < 0.015 ng/ml < 0.015 ng/ml Total Protein 7.9 gm/dl Albumin 4.0 gm/dl Lipase 181 U/L Free Thyroxine 1.22 ng/dl Salicylates Level < 1.7 mg/dl Acetaminophen Level < 2 ug/ml Ethyl Alcohol mg/dL < 3.0 mg/dl Rapid Plasma Reagin NONREACTIVE Bedside Glucose 92 mg/dl Triglycerides Level 112 mg/dl Cholesterol Level 149 mg/dl HDL Cholesterol 63 mg/dl LDL Cholesterol, Calculated 64 mg/dl VLDL Cholesterol, Calculated 22 mg/dl Cholesterol/HDL Ratio 2.4 Urine Color YELLOW Urine Appearance CLEAR Urine pH 5.5 Urine Specific [place] 1.011 Urine Protein NEG Urine Glucose (UA) NEG Urine Ketones 2+ Urine Occult Blood 2+ Urine Nitrite NEG Urine Bilirubin NEG Urine Urobilinogen NEG Urine Leukocyte Esterase SMALL Urine WBC (Auto) 10-30 /hpf Urine RBC (Auto) 10-30 /hpf Urine Hyaline Casts (Auto) 5-10 /lpf Urine Epithelial Cells (Auto) >30 /lpf Urine Bacteria (Auto) NEG Urine Renal Epithelial Cells 10-20 /lpf Urine Opiates Screen NEG Urine Methadone, Qualitative NEG Urine Barbiturates NEG Urine Phencyclidine (PCP) Level NEG Ur Amphetamine/Methamphetamine NEG MDMA (Ecstasy) Screen NEG Urine Benzodiazepines Screen NEG Urine Cocaine Metabolite NEG Urine Marijuana (THC) NEG Test 09/12/16 08:33 09/12/16 09:45 White Blood Count 12.39 K/uL Red Blood Count 5.48 M/uL Hemoglobin 13.8 g/dL Hematocrit 41.9 % Mean Corpuscular Volume 76.5 fL Mean Corpuscular Hemoglobin 25.2 pg Mean Corpuscular Hemoglobin Concent 32.9 g/dl RDW Standard Deviation 42.3 fL RDW Coefficient of Variation 15.1 % Platelet Count 259 K/uL Mean Platelet Volume 9.6 fL Sodium Level 141 mmol/L Potassium Level 3.8 mmol/L Chloride Level 108 mmol/L Carbon Dioxide Level 23 mmol/L Anion Gap 10.0 mmol/L Blood Urea Nitrogen 13 mg/dl Creatinine 0.63 mg/dl Est Creatinine Clear Calc Drug Dose 109.2 ml/min Estimated GFR () 114.6 Estimated GFR (Non- 98.9 BUN/Creatinine Ratio 21.3 Random Glucose 107 mg/dl Calcium Level 8.5 mg/dl Total Creatine Kinase 340 U/L Creatine Kinase MB 8.3 ng/ml Creatine Kinase MB Ratio 2.4 Troponin I < 0.015 ng/ml Mental Examination During interview pt is: alert and oriented Appearance: appropriately groomed Eye contact is: good Motor behavior is: no abnormal motor movements Speech: normal in rate, rhythm & volume Affect: tearful Mood is: other ("grieving") Thought process: tangential Thought content: delusions Suicidal thought are: denied Homicidal thoughts are: denied Hallucinations: denies auditory Cognition: attention grossly intact, language grossly intact Intelligence estimated to be: average Insight: poor Judgement: poor Impression / Recommendations Impression 56 yo female with no formal psych history, chart info to suggest periods of delusional behavior last year, brought to [facility] on 302 warrant and admit for presumed hypertensive encephalopathy. Currently no evidence of hallucinations on exam and affect is calm and thoughts surprisingly organized. She is maintaining delusion about loss of fiance and home. TSH is normal. differential includes withdrawal delirium (given hypertension), hypertensive encephalopathy superimposed on an underlying paranoid delusional disorder, given work history and episodic nature of symptoms could certainly be mood driven (depression with pf or bipolar), she certainly doesn't appear manic vs a primary psychotic disorder. Recommendations she understands that staff here, police do not believe her but is thankful for her care and understands that BP is being monitored discussed inpatient hospitalization for further monitoring, she is quite resistant as doesn't view this as a delusion and declines antipsychotic medication she doesn't currently meet criteria for forced medication and will continue to attempt to obtain more collateral info re: baseline, certainly at this time given concerns about self care expressed in 302 petition would support 302 when medically cleared. I don't feel she should be confronted more about delusions on floor as may decompensate.
[2016-09-13] VITALS (8 sets, daily range): BP systolic 122–153; BP diastolic 77–95; PULSE 74–94; TEMP 36.5–36.9; O2SAT 94–98
[2016-09-13] MEDS: SODIUM CHLORIDE 0.9% 1000ML 1,000 ML IV SCH ×2 (03:35→13:51)
[2016-09-13 06:13] LABS: HEMATOCRIT 40.6 % (37-47); MEAN CELL VOLUME 77.6 fL (80-100); MEAN CORPUSCULAR HEMOGLOBIN 25.4 pg (25-34); MEAN CORPUSCULAR HGB CONC 32.8 g/dl (32-36); MEAN PLATELET VOLUME 10.1 fL (7.4-10.4); PLATELET COUNT 275 K/uL (130-400); RED BLOOD COUNT 5.23 M/uL (4.2-5.4); WHITE BLOOD COUNT 10.88 K/uL (4.8-10.8)
[2016-09-13 06:51] LABS: CALCIUM 8.6 mg/dl (8.5-10.1); CREATININE 0.6 mg/dl (0.60-1.20); MAGNESIUM 2.1 mg/dl (1.8-2.4); POTASSIUM 3.5 mmol/L (3.5-5.1)
[2016-09-13] MEDS: FLUTICASONE/SALMETEROL 250/50 (ADVAIR) 14 PUFF/1 INHALER INH SCH (08:39)
[2016-09-13] MEDS: CIPROFLOXACIN / D5W 400 MG in PREMIXED IN D5W 200 ML IV SCH (08:39)
[2016-09-13] MEDS: FLUTICASONE PROPIONATE NA SPR 16 GM BTL NAE SCH (08:39)
[2016-09-13] MEDS: MULTIVITAMIN TAB PO SCH (08:39)
[2016-09-13] MEDS: PANTOprazole SOD 40 MG TAB PO SCH (08:39)
[2016-09-13] MEDS: DORZOLAMIDE/TIMOLOL 22.3/6.8MG/ML 10 ML BTL OPB SCH (08:40)
[2016-09-13] MEDS: CALCIUM 600MG + VIT D 400 IU TAB PO SCH (08:40)
--- NOTE | 2016-09-13 11:32 | Progress Note ---
Internal Med Progress Note Date of Service: Sep 13, 2016. Provider Documentation: SUBJECTIVE: The patient was seen and examined Feels fine since admission Denies any Chest pain,palpitation,sob No abdominal pain,nausea and or vomiting No neurological symptoms Still has Psychiatric symptoms-but denies to have any to me OBJECTIVE: Vital Signs-as noted below Exam: General-No distress at rest Eyes-no distress ENT-normal Neck-normal Lungs-clear to auscultate bilaterally Heart-Regular,no murmur appreciated Abdomen-Benign,no bertrand,bowel sound present Extremities-Trace edema bilaterally Neuro-AAOx3 Lab data as noted below. ASSESSMENT & PLAN: Acute Psychosis -no prior psych history; pt has 302 order -no h/o any Drug use and Tox Screen is negative -doubt any infective process but WCC is increased at 15K -CT head is negative -CXR no evidence of consolidation -Blood and Urine Culture -negative -consider one-on-one if pt displays agitation or self harm -consult psych, Dr. Villavicencio-appreciate input -Advised MRI of the brain.Patient wanted to talk to the PCP before undergoing MRI -Medically stable HYPERTENSIVE URGENCY -no h/o HTN -SPR >190 in ER -pt received Lopressor in ED -started on clonidine PRN -BP remains stable ABNORMAL EKG -EKG sinus tachy with T wave flattening in anterior leads and poor R wave progression with prolonged QTc (477) -CKMB 19.7; Trop negative -check serial cardiac enzymes-negative -doubt any ACS -no CP -ECHO;; * There is moderate concentric left ventricular hypertrophy. * Left ventricular systolic function is normal. * Ejection Fraction = 60-65%. * The left ventricular wall motion is normal. * The right ventricular systolic function is normal. * The left atrial size is normal. * Right atrial size is normal. * No significant valvular pathology ELEVATED CPK -CPK 788; ? mild rhabdo, drug induced, etc -start IVF -CPK is trending down ASTHMA, MILD PERSISTENT -no evidence of acute exacerbation -no wheezing and or SOB GERD -cont PPI GLAUCOMA -cont dorzolamide and Zioptan DVT PROPHYLAXIS -SCDs CODE STATUS -FULL CODE DISPO Will need to go to Psyche Floor transfer to DC Vital Signs: Date Time Temp Pulse Resp B/P Pulse Ox O2 Delivery O2 Flow Rate FiO2 09/13/16 08:00 Room Air 09/13/16 07:00 36.5 81 18 153/83 98 Room Air 09/13/16 04:00 36.5 94 20 134/88 95 Room Air 09/13/16 03:58 Room Air 09/13/16 01:20 Room Air 09/13/16 00:34 36.9 84 18 122/77 94 Room Air 09/12/16 20:00 96 Room Air 09/12/16 19:58 36.8 96 18 169/106 96 Room Air 09/12/16 19:16 36.8 89 18 147/75 98 Room Air 09/12/16 16:00 Room Air 09/12/16 15:38 36.6 93 20 159/91 96 Room Air 09/12/16 12:05 Room Air 09/12/16 11:41 36.7 84 20 135/83 96 Room Air Lab Results: Results Past 24 Hours Test 09/13/16 05:44 Range/Units White Blood Count 10.88 4.8-10.8 K/uL Red Blood Count 5.23 4.2-5.4 M/uL Hemoglobin 13.3 12.0-16.0 g/dL Hematocrit 40.6 37-47 % Mean Corpuscular Volume 77.6 80-100 fL Mean Corpuscular Hemoglobin 25.4 25-34 pg Mean Corpuscular Hemoglobin Concent 32.8 32-36 g/dl RDW Standard Deviation 42.3 36.4-46.3 fL RDW Coefficient of Variation 15.0 11.5-14.5 % Platelet Count 275 130-400 K/uL Mean Platelet Volume 10.1 7.4-10.4 fL Sodium Level 143 136-145 mmol/L Potassium Level 3.5 3.5-5.1 mmol/L Chloride Level 108 98-107 mmol/L Carbon Dioxide Level 23 21-32 mmol/L Anion Gap 12.0 3-11 mmol/L Blood Urea Nitrogen 10 7-18 mg/dl Creatinine 0.60 0.60-1.20 mg/dl Est Creatinine Clear Calc Drug Dose 117.5 ml/min Estimated GFR () 116.4 Estimated GFR (Non- 100.5 BUN/Creatinine Ratio 17.0 10-20 Random Glucose 85 70-99 mg/dl Calcium Level 8.6 8.5-10.1 mg/dl Magnesium Level 2.1 1.8-2.4 mg/dl
[2016-09-13] MEDS ORDERED: NURSING VERBAL MED ORDER ONE (14:15)
[2016-09-13] MEDS ORDERED: LORAZEPAM 2 MG/ML 1 ML VIAL IV PRN (14:15)
[2016-09-13] MEDS ORDERED: LORAZEPAM INJ 1 MG in SYRINGE 0.5 ML IV PRN (14:30)
--- NOTE | 2016-09-13 15:34 | Discharge Instructions ---
Discharge Instructions Admission Reason for Admission: Altered Mental Status,Elevated Cpk,Psychosis Discharge Discharge Diagnosis / Problem: Acute Psychosis Discharge Goals Goal(s): Prevent Disease Progression Activity Recommendations Activity Level: Assistance Required . Additional Information Patient informed of condition: Yes Advance Directives: No DNR: No Level of Care: Other (Mental Health Unit) Communicable Disease: No Prognosis: Stable Haider Catheter: No Instructions / Follow-Up Instructions / Follow-Up Please make an appointment with your PCP in 1 week following discharge Current Hospital Diet Patient's current hospital diet: Regular Diet Discharge Diet Recommended Diet: Regular Diet Pending Studies Studies pending at discharge: no Laboratory Results Lipid Panel Test 09/12/16 02:10 Range/Units Triglycerides Level 112 0-150 mg/dl Cholesterol Level 149 0-200 mg/dl HDL Cholesterol 63 mg/dl Cholesterol/HDL Ratio 2.4 LDL Cholesterol, Calculated 64 mg/dl Medical Emergencies . Who to Call and When: Medical Emergencies: If at any time you feel your situation is an emergency, please call 911 immediately. . Non-Emergent Contact Non-Emergency issues call your: Primary Care Provider . Past History Medical & Surgical History: (1) Hypertensive encephalopathy (2) Hypertension (3) Psychosis (4) Altered mental status (5) Asthma, mild persistent (6) Glaucoma (7) GERD (gastroesophageal reflux disease) . "Provider Documentation" section prepared by Sepideh Calix. Core Measure Problem Core Measures: None
--- NOTE | 2016-09-13 15:37 | Psychiatric Progress Notes ---
Psychiatric Progress Note Date of Service Sep 13, 2016. Notes patient had period of agitation overnight secondary to paranoia about FBI, ended up throwing her phone out of her room because felt it was a bomb. She denies currently, continues to maintain that her fiance is and needs to leave for the . Wouldn't cooperate with MRI on medical floor. Reviewed acute need to move ahead with 302 and county worker came to review her rights as I completed 302 examiner portion. Plan is for treatment at [address] S.
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
== END 2016-09-13 16:24 | DRG 885 ==
LOC: ENRESERVDT → ENRESERVTM → C.EDB 15:37 → C.2T 20:07 → C.MED 09-13 14:29
PROVIDERS: ADMIT Hospitalist; ATTEND Internal Medicine
DX: F29 Unspecified psychosis not due to a substance or known physiological condition (principal); M62.82 Rhabdomyolysis; K21.9 Gastro-esophageal reflux disease without esophagitis; J45.909 Unspecified asthma, uncomplicated; I16.0 Hypertensive urgency; H40.9 Unspecified glaucoma; D72.829 Elevated white blood cell count, unspecified; Z82.49 Family history of ischemic heart disease and other diseases of the circulatory system; Z83.3 Family history of diabetes mellitus

== ENCOUNTER 2016-09-13 16:39 | Inpatient (IN) | payer BC ==
[~2016-09-13] VITALS: Ht 149.9 cm; Wt 117.2 kg
[~2016-09-13 16:39] MED LIST changes: +ALBUAER INH; +CALC200T PO; -OSCAL D PO
--- NOTE | 2016-09-13 17:09 | Psychiatric History & Physical ---
History Identifying Data Evelin Alas is a 56-year-old female who currently lives in [place] alone. Evelin Alas was admitted on a 302 involuntary commitment. Patient is admitted from transfer from the medical floor where she was initially admitted for hypertensive urgency. The patient was brought to the ED by 302 warrant ( petition from [facility]). Chief Complaint "I don't know why you are doing this to me, he's gone and I need to get to the ". History of Present Illness As per initial consultation: The patient is currently maintaining the delusions though timeline varies--states her fiance had an engagement libertarian at the [facility] 2 days prior to admission when he got a call that his mother . The patient states her fiance used ETOH and MJ and that he in front of her the next morning. She notes the police came to the hotel and picked up the body. [facility] and [facility] police department were involved in confirming that her reported fiance, Cody Lozano was alive and he denied engagement. Liaison contacted him for collateral and he is a longtime friend from work but never involved with patient. They continue to socialize as a group of former coworkers and he expressed concern about her paranoia over past few months and inability to recognize him in the context of this most recent crisis. Additional email correspondence is on her medical chart that there were multiple calls to police about her in 2016 for similar behavior but no clear written documentation. She apparently is an acquaintance of a police officers and called her directly (without being given her number) about not sleeping well and described placing a camera outside of her window but didn' t necessarily want police to investigate. She reportedly expressed beliefs about a 10 yo sending her letters or homeless people wandering near her house to smoke MJ and talk about her. The patient reported to crisis that she was not eating or sleeping for over 48 hours due to grief. There were also beliefs expressed that her home blew up, though later in conversation patient told me she still has her home. Also on 302 petition were statements about her wanting to travel to [place] for an autopsy on her fiance. Initial QTc on medical floor initially [id number], CPK slightly elevated but trending down, nothing significant on tox. She denied SI/HI/rodriguez. She denied depression. An MRI was recommended 09/13/16 due to concerns about unexplained hypertensive episode and ? prosopagnosia. Ms. Alas had a period of agitation last pm due to paranoia about her phone being a bomb and the FBI. She threw her phone and security up to assist floor but no prn given. Today she remains increasingly distraught that no one believes her and is requesting to go home. She was not cooperative with MRI and since vital signs stable and increasing concern about ability to cooperate on floor, completed 302 process to transfer for inpatient psych. Past Psychiatric History Current OP Treatment: no current treatment Prior OP Treatment: no prior treatment no prior psych history, med trials, inpatient or suicide attempts. Past Medical/Surgical History History of Obesity: Yes History of HTN: Yes History of Diabetes: No History of Heart Disease: No History of Dyslipidemia: No History of Concussion/Seizure: No Problem List: (1) Asthma, mild persistent (2) GERD (gastroesophageal reflux disease) (3) Glaucoma (4) H/O wisdom tooth extraction (5) History of appendectomy Allergies Allergies: Coded Allergies: NO KNOWN DRUG ALLERGIES (Verified Allergy, Unknown, ., 09/11/16) Home Medications Scheduled Calcium Carbonate-Vitamin D (Oscal 500/200 D-3), 1 TAB PO QAM Dorzolamide Hcl-Timolol Maleat (Cosopt Oph), 1 DROP OPB BID Fluticasone Prop/Salmeterol (Advair Diskus 250/50 60 Dose), 1 PUFFS INH BID Fluticasone Propionate (Fluticasone Propionate), 2 SPRAYS MELY QAM Multivitamin (Multivitamin), 1 TAB PO QAM Omeprazole (Prilosec), 20 MG PO QAM [Zioptan], 1 DROP OPB HS Scheduled PRN Albuterol Sulfate (Proventil Hfa), 2 PUFFS INH Q6H PRN for SOB/Wheezing Family History Cancer Diabetes mellitus Heart disease Hypertension History of Obesity: Yes History of Dyslipidemia: No denied family psych history Alcohol Use Alcohol Use In Past 12 Months: No Substance History Drug use within the past 12 months (type, amount and frequency), if negative the patient specifically denied misuse of prescription medications, over the counter meds, inhalants, organic substances and illegal substances (street drugs ): none, no brief intervention indicated. Personal History Born in: [place] Education: graduated from high school Work History: retired from [employer] Relationship History: never Children: no Spiritual Affiliation: believes in heaven Legal History: none Abuse History: none Review of Systems Psych: denies symptoms other than stated above Constitutional: denied Cardiovascular: denied GI: denied Neurologic: denied Remainder of 10 body systems also reviewed and denied other than noted above. Examination Physical Examination A physical exam was performed on the medical floor prior to admission to the unit. I accept that physical by Dr. Calix as correct/medical clearance for the inpatient physical exam. Vital Signs stable on med floor prior to transfer, afebrile Laboratory Results Test 09/11/16 17:17 09/11/16 17:21 09/12/16 02:10 09/12/16 03:30 White Blood Count 15.88 H Red Blood Count 5.87 H Hemoglobin 15.0 Hematocrit 44.7 Mean Corpuscular Volume 76.1 L Mean Corpuscular Hemoglobin 25.6 Mean Corpuscular Hemoglobin Concent 33.6 Platelet Count 298 Mean Platelet Volume 9.6 Neutrophils (%) (Auto) 74.7 Lymphocytes (%) (Auto) 16.4 Monocytes (%) (Auto) 7.0 Eosinophils (%) (Auto) 1.3 Basophils (%) (Auto) 0.3 Neutrophils # (Auto) 11.87 H Lymphocytes # (Auto) 2.61 Monocytes # (Auto) 1.11 H Eosinophils # (Auto) 0.20 Basophils # (Auto) 0.05 RDW Standard Deviation 42.0 RDW Coefficient of Variation 15.1 H Immature Granulocyte % (Auto) 0.3 Immature Granulocyte # (Auto) 0.04 H Prothrombin Time 11.4 Prothrombin Time INR 1.1 PTT 34.6 H Partial Thromboplastin Ratio 1.3 D-Dimer 360 Sodium Level 136 Potassium Level 3.7 Chloride Level 101 Carbon Dioxide Level 21 Anion Gap 14.0 H Blood Urea Nitrogen 21 H Creatinine 0.91 Est Creatinine Clear Calc Drug Dose 75.7 Estimated GFR () 80.6 Estimated GFR (Non- 69.5 BUN/Creatinine Ratio 23.3 H Random Glucose 90 Osmolality 291 Calcium Level 9.7 Total Bilirubin 0.7 Direct Bilirubin 0.2 Aspartate Amino Transferase (AST) 46 H Alanine Aminotransferase (ALT) 42 Alkaline Phosphatase 126 H Total Creatine Kinase 788 H 465 H Creatine Kinase MB 19.7 H 10.8 H Creatine Kinase MB Ratio 2.3 Troponin I < 0.015 < 0.015 Total Protein 7.9 Albumin 4.0 Lipase 181 Free Thyroxine 1.22 Salicylates Level < 1.7 L Acetaminophen Level < 2 L Ethyl Alcohol mg/dL < 3.0 Rapid Plasma Reagin NONREACTIVE POC Glucose 92 H Triglycerides Level 112 Cholesterol Level 149 HDL Cholesterol 63 LDL Cholesterol, Calculated 64 VLDL Cholesterol, Calculated 22 Cholesterol/HDL Ratio 2.4 Urine Color YELLOW Urine Appearance CLEAR Urine pH 5.5 Urine Specific [place] 1.011 Urine Protein NEG Urine Glucose (UA) NEG Urine Ketones 2+ H Urine Occult Blood 2+ H Urine Nitrite NEG Urine Bilirubin NEG Urine Urobilinogen NEG Urine Leukocyte Esterase SMALL H Urine WBC (Auto) 10-30 H Urine RBC (Auto) 10-30 H Urine Hyaline Casts (Auto) 5-10 H Urine Epithelial Cells (Auto) >30 H Urine Bacteria (Auto) NEG Urine Renal Epithelial Cells 10-20 H Urine Opiates Screen NEG Urine Methadone, Qualitative NEG Urine Barbiturates NEG Urine Phencyclidine (PCP) Level NEG Ur Amphetamine/Methamphetamine NEG MDMA (Ecstasy) Screen NEG Urine Benzodiazepines Screen NEG Urine Cocaine Metabolite NEG Urine Marijuana (THC) NEG Test 09/12/16 08:33 09/12/16 09:45 09/13/16 05:44 White Blood Count 12.39 H 10.88 H Red Blood Count 5.48 H 5.23 Hemoglobin 13.8 13.3 Hematocrit 41.9 40.6 Mean Corpuscular Volume 76.5 L 77.6 L Mean Corpuscular Hemoglobin 25.2 25.4 Mean Corpuscular Hemoglobin Concent 32.9 32.8 RDW Standard Deviation 42.3 42.3 RDW Coefficient of Variation 15.1 H 15.0 H Platelet Count 259 275 Mean Platelet Volume 9.6 10.1 Sodium Level 141 143 Potassium Level 3.8 3.5 Chloride Level 108 H 108 H Carbon Dioxide Level 23 23 Anion Gap 10.0 12.0 H Blood Urea Nitrogen 13 10 Creatinine 0.63 0.60 Est Creatinine Clear Calc Drug Dose 109.2 117.5 Estimated GFR () 114.6 116.4 Estimated GFR (Non- 98.9 100.5 BUN/Creatinine Ratio 21.3 H 17.0 Random Glucose 107 H 85 Calcium Level 8.5 8.6 Total Creatine Kinase 340 H Creatine Kinase MB 8.3 H Creatine Kinase MB Ratio 2.4 Troponin I < 0.015 Magnesium Level 2.1 Mental Examination During interview pt is: alert and oriented, uncooperative, guarded Appearance: appropriately groomed Eye contact is: fair Motor behavior is: no abnormal motor movements Speech: normal in rate, rhythm & volume Affect: depressed, tearful Mood is: dysphoric, angry Thought process: clear, coherent Thought content: paranoid, delusions Suicidal thought are: denied Homicidal thoughts are: denied Hallucinations: denies auditory, denies visual Cognition: language grossly intact (memory and attention decreased) Intelligence estimated to be: consistent with level of education Insight: severely impaired Judgement: severely impaired Impression / Recommendations Impression 56 yo female with no formal psych history, chart info to suggest periods of delusional behavior in past year, brought to [facility] on 302 warrant and admit for presumed hypertensive encephalopathy. The patient became increasingly difficult on the medical floor as her delusions were challenged and she was transferred to MHU for additional treatment/safety. differential includes withdrawal delirium (given hypertension), hypertensive encephalopathy superimposed on an underlying paranoid delusional disorder, given work history and episodic nature of symptoms could certainly be mood driven (depression with pf or bipolar), she certainly doesn't appear manic vs a primary psychotic disorder (later onset schizophrenia). The patient is admitted to [facility] ([facility] inpatient mental health unit) on q 15 min checks (behavioral with suicide precautions) for safety. The patient will participate in group, recreational and milieu therapies and will be offered additional individual and family sessions as clinically appropriate. No history of violence toward self or others in past 6 months but did throw cell phone last pm related to delusions. Inventory Assets Strengths: senior living employment history (now retired), [employer] friendships Needs: reality focus Risk Factors Assessment : Yes /single/: Yes Access to guns: No Substance use disorders: No Previous attempt: No Family history of suicide: No Previous psychiatric stay: No Smoker: No Recommendations (1) Delusional disorder trial of an antipsychotic is recommended, patient has declined even prn anxiety medication on the medical floor, only accepted 1 mg Ativan IV prior to transfer which did involve security. MNPR given level of psychosis and unpredictable behavior. Will offer Risperdal 1 mg M tab prn with Haldol as back up. Was eating and drinking on med floor and not acutely threatening so doesn't appear to yet meet criteria for forced meds. (2) Hypertension continue floor discharge recs/meds and monitor. CPT Code Initial Hospital Care: [id number]
[2016-09-13] MEDS ORDERED: ALBUTEROL HFA 8 GM INHALER INH PRN (17:15)
[2016-09-13] MEDS ORDERED: LORAZEPAM 1 MG TAB PO PRN (17:15)
[2016-09-13] MEDS ORDERED: ALUMINUM/MAGNESIUM SUSP 30 ML UDC PO PRN (17:15)
[2016-09-13] MEDS ORDERED: ACETAMINOPHEN 325 MG TAB PO PRN (17:15)
[2016-09-13] MEDS ORDERED: BISMUTH SUBSALICYLATE PER ML OMNICELL CHARGE PO PRN (17:15)
[2016-09-13] MEDS ORDERED: BENZTROPINE MESYLATE 0.5 MG TAB PO PRN (17:15)
[2016-09-13] MEDS ORDERED: hydrOXYzine HCL 25 MG TAB PO PRN ×2 (17:15)
[2016-09-13] MEDS ORDERED: RISPERIDONE ODT 1MG PO PRN (17:15)
[2016-09-13] MEDS ORDERED: MAGNESIUM HYDROXIDE SUSP 30 ML UDC PO PRN (17:15)
[2016-09-13] MEDS ORDERED: HALOPERIDOL 5 MG TAB PO PRN (17:15)
[2016-09-13] MEDS ORDERED: SODIUM CHLORIDE 0.65% NA SOLN 45 ML (OCEAN) PRN (17:15)
[2016-09-13 17:36] VITALS: BP 164/93; PULSE 89; TEMP 36.9; Ht 149.9 cm; Wt 117.2 kg
[2016-09-13] MEDS: FLUTICASONE/SALMETEROL 250/50 (ADVAIR) 14 PUFF/1 INHALER INH SCH (22:30)
[2016-09-13] MEDS: DORZOLAMIDE/TIMOLOL 22.3/6.8MG/ML 10 ML BTL OPB SCH (22:30)
[2016-09-14 07:00] VITALS: BP_SYST 143; BP_SYST 147; BP_DIAS 92; BP_DIAS 96; PULSE 84; PULSE 86; TEMP 36.6
[2016-09-14 07:35] LABS: BASO % 0.6 %; BASO ABS # 0.05 K/uL (0-0.2); COMPLETE YES; EOS % 3.2 %; HEMATOCRIT 41.1 % (37-47); IG% 0.2 %; LYMPH % 22.3 %; LYMPH ABS # 1.82 K/uL (1.2-3.4); MEAN CELL VOLUME 77.3 fL (80-100); MEAN CORPUSCULAR HGB CONC 32.4 g/dl (32-36); MEAN PLATELET VOLUME 9.8 fL (7.4-10.4); MONO % 6.3 %; NEUT % 67.4 %; PLATELET COUNT 248 K/uL (130-400); RED BLOOD COUNT 5.32 M/uL (4.2-5.4); WHITE BLOOD COUNT 8.15 K/uL (4.8-10.8)
[2016-09-14] MEDS: FLUTICASONE/SALMETEROL 250/50 (ADVAIR) 14 PUFF/1 INHALER INH SCH ×2 (07:46→21:05)
[2016-09-14] MEDS: CALCIUM 600MG + VIT D 400 IU TAB PO SCH (07:47)
[2016-09-14] MEDS: DORZOLAMIDE/TIMOLOL 22.3/6.8MG/ML 10 ML BTL OPB SCH ×2 (07:47→21:05)
[2016-09-14] MEDS: PANTOprazole SOD 40 MG TAB PO SCH (07:47)
[2016-09-14] MEDS: FLUTICASONE PROPIONATE NA SPR 16 GM BTL NAE SCH (07:47)
[2016-09-14] MEDS: MULTIVITAMIN TAB PO SCH (07:47)
[2016-09-14] MEDS ORDERED: RISPERIDONE ODT 1MG PO STA (10:47)
[2016-09-14] MEDS ORDERED: RISPERIDONE ODT 1MG PO ONE (10:47)
--- NOTE | 2016-09-14 11:00 | Psychiatric Progress Notes ---
Progress Note Date of Service Sep 14, 2016. Interval History Evelin Alas is a 56-year-old female who currently lives in [place] alone , presented to the ER 09/12/16 on a 302 petition from [facility] for psychosis, and was initially admitted to the hospitalist service for hypertensive urgency. She was medically cleared 09/13/16 and admitted to the [facility] on a 302 involuntary commitment for inability to care for herself due to delusions, paranoia, and hallucinations. Chief Complaint "I'm fine". Subjective Patient was seen & assessed interval progress reviewed with Treatment Team. Staff report that she is refusing when necessary antipsychotic medication, is distraught that nobody believes her, and wants to leave. She told nursing staff on admission that her fianc had in front of her, and although that person was present during the can help evaluation prior to admission, she insists that he was not real and is a double. She also stated she could not go home because "Bobby Faith is watching." She refused to sign any ROIs on admission, stating that her tax attorney was present and will be getting her out of the hospital (no tax attorney was present). She talked about homeless people and small children smoking marijuana on her property and making fun of her. Today she was seen in her room. She states that she is "fine," and that she has "no idea" why she is here. She says "I think there is a misunderstanding of what I' m saying, what other people are thinking." She said that her friends were concerned about her, but when asked to clarify said "I don't know, I haven't talked to anyone." She continues to state that she was at the [place] in with Cody Blake, whom she says is her fianc, and then says that they were at a hotel because "that's where we were planning to get engaged." She says that there are 2 Cody Willsffers, and when asked about reports in the records that the police denied that anyone had that day at the [place] and, she appears confused, and says "I guess I just need some time to figure things out. " She denies that she feels confused at that her thoughts are jumbled, and says there is no chance that which she is experiencing other symptoms of mental illness. She says she is not sure who called can help, but says the grease rack worker told her that they got calls from her friends who were concerned about her. She does not think that she needs treatment, and says "right now my tax attorney is working on a court order to have me released." She states her tax attorney's name is Yen, and says that he also has her phone. When asked if she has any friends who can help us to understand what has happened and how she came to be in the hospital, she says that she had kept her relationship with Cody a secret from everyone, so nobody knows about it. She says she has not contacted any friends since she's been here, because she doesn't have their phone numbers. She is smiling inappropriately and appears about to laugh multiple times throughout the assessment, and was guarded when asked what she was thinking about. We reviewed her treatment plan, including the recommendations that she take medication, which she feels she does not need. Sleep Information Total Hours of Sleep: 6.00 Meal Information Percent of Breakfast Consumed: 100 Percent of Dinner Consumed: 0 Mental Status Exam During interview pt is: alert and oriented, uncooperative (gives vague answers) , guarded Appearance: appropriately dressed, appropriately groomed, other (obese, casually dressed in street clothes) Eye contact is: good Motor behavior is: steady gait & station, no abnormal motor movements Speech: normal in rate, rhythm & volume Affect: other (odd, smiling inappropriately) Mood is: other ("I'm fine") Thought process: clear, coherent Thought content: paranoid, delusions Suicidal thought are: denied Homicidal thoughts are: denied Hallucinations: denies auditory (but on admission reported hearing the voice of her marjorie), denies visual Cognition: language grossly intact (memory and attention impaired) Intelligence estimated to be: consistent with level of education Insight: severely impaired Judgement: severely impaired Impression 56 yo female with no formal psych history, chart info to suggest periods of delusional behavior in past year, brought to [facility] on 302 warrant and admitted medically for presumed hypertensive encephalopathy. The patient became increasingly difficult on the medical floor as her delusions were challenged, and she was transferred to MHU for additional treatment/safety. Differential includes withdrawal delirium (given hypertension), hypertensive encephalopathy superimposed on an underlying delusional disorder, given work history and episodic nature of symptoms could certainly be mood driven ( depression with psychosis or bipolar), vs a primary psychotic disorder (later onset schizophrenia). She does not appear manic. The patient is admitted to [facility] ([facility] mental health unit) on q 15 min checks (behavioral with suicide precautions) for safety. The patient will participate in group, recreational and milieu therapies and will be offered additional individual and family sessions as clinically appropriate. No history of violence toward self or others in past 6 months but did throw cell phone while on the medical floor related to delusions. Plan (1) Delusional disorder Trial of an antipsychotic is recommended, patient has declined even prn anxiety medication on the medical floor, only accepted 1 mg Ativan IV prior to transfer which did involve security. MNPR given level of psychosis and unpredictable behavior. Will offer Risperdal 1 mg M tab prn with Haldol as back up. Was eating and drinking on med floor and not acutely threatening so doesn't appear to yet meet criteria for forced meds. 09/14 - continues to refuse when necessary medication. Will order risperidone M tablet 1 mg twice a day for ongoing delusions and paranoia. Encouraged patient to identify friends who can involved in her treatment to help clarify events leading to admission, as she continues to insist that all of her reports are true. She has not been threatening or aggressive, is eating, drinking, and sleeping here, so currently does not meet criteria for forced medication, but may need to pursue a 303 commitment if she remains too ill to return home and live independently in her current state. She refused an MRI of the brain on the medical floor, and will need to follow-up for this as an outpatient. (2) Hypertension continue floor discharge recs/meds and monitor. Willing to follow-up with PCP, Dr. Didi Livingston Inventory Assets Strengths: snf employment history (now retired), [employer] friendships Needs: reality focus Risk Factors Assessment : Yes /single/: Yes Substance use disorders: No Previous attempt: No Family history of suicide: No Previous psychiatric stay: No Smoker: No Data Vital Signs Last 24 Hrs: Date Time Temp Pulse Resp B/P Pulse Ox O2 Delivery O2 Flow Rate FiO2 09/14/16 07:00 36.6 86 16 143/92 84 147/96 09/13/16 17:36 36.9 89 16 164/93 Meds Administered Last 24 Hrs: Meds Administered (Past 24Hrs) Medications (Trade) Dose Ordered Sig/Kylie Route Start Time Stop Time Status Last Admin Dose Admin Dorzolamide/ Timolol (Cosopt Op Soln) 1 drops BID OPB 09/13/16 22:00 10/13/16 21:59 09/14/16 07:47 1 DROPS Salmeterol Xinafoate/ Fluticasone (Advair Diskus 250/50 Inh) 1 puff BID INH 09/13/16 22:00 10/13/16 21:59 09/14/16 07:46 1 PUFF Fluticasone Propionate (Flonase Nasal [place]) 2 sprays QAM MELY 09/14/16 09:00 10/14/16 08:59 09/14/16 07:47 2 SPRAYS Multivitamins (Multivitamin Tab) 1 tab QAM PO 09/14/16 09:00 10/14/16 08:59 09/14/16 07:47 1 TAB Calcium/Vitamin D (Caltrate Plus Tab) 1 tab QAM PO 09/14/16 09:00 10/14/16 08:59 09/14/16 07:47 1 TAB Pantoprazole Sodium (Protonix Tab) 40 mg QAM PO 09/14/16 09:00 10/14/16 08:59 09/14/16 07:47 40 MG Lab Results Last 24 Hrs: Last 24 Hours Test 09/14/16 07:15 White Blood Count 8.15 K/uL Red Blood Count 5.32 M/uL Hemoglobin 13.3 g/dL Hematocrit 41.1 % Mean Corpuscular Volume 77.3 fL Mean Corpuscular Hemoglobin 25.0 pg Mean Corpuscular Hemoglobin Concent 32.4 g/dl Platelet Count 248 K/uL Mean Platelet Volume 9.8 fL Neutrophils (%) (Auto) 67.4 % Lymphocytes (%) (Auto) 22.3 % Monocytes (%) (Auto) 6.3 % Eosinophils (%) (Auto) 3.2 % Basophils (%) (Auto) 0.6 % Neutrophils # (Auto) 5.49 K/uL Lymphocytes # (Auto) 1.82 K/uL Monocytes # (Auto) 0.51 K/uL Eosinophils # (Auto) 0.26 K/uL Basophils # (Auto) 0.05 K/uL RDW Standard Deviation 42.2 fL RDW Coefficient of Variation 15.0 % Immature Granulocyte % (Auto) 0.2 % Immature Granulocyte # (Auto) 0.02 K/uL Total Creatine Kinase 156 U/L
[2016-09-14] MEDS: RISPERIDONE ODT 1MG PO SCH (21:12)
[2016-09-15] MEDS: FLUTICASONE/SALMETEROL 250/50 (ADVAIR) 14 PUFF/1 INHALER INH SCH ×2 (08:25→21:25)
[2016-09-15] MEDS: FLUTICASONE PROPIONATE NA SPR 16 GM BTL NAE SCH (08:25)
[2016-09-15] MEDS: DORZOLAMIDE/TIMOLOL 22.3/6.8MG/ML 10 ML BTL OPB SCH ×2 (08:25→21:25)
[2016-09-15] MEDS: RISPERIDONE ODT 1MG PO SCH ×2 (09:00→21:27)
[2016-09-15] MEDS: MULTIVITAMIN TAB PO SCH (09:03)
[2016-09-15] MEDS: PANTOprazole SOD 40 MG TAB PO SCH (09:03)
[2016-09-15] MEDS: CALCIUM 600MG + VIT D 400 IU TAB PO SCH (09:03)
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
[2016-09-16 06:55] VITALS: BP_SYST 155; BP_SYST 164; BP_DIAS 110; BP_DIAS 96; PULSE 101; PULSE 111; TEMP 36.5
[2016-09-16] MEDS: RISPERIDONE ODT 1MG PO SCH ×2 (09:00→21:43)
[2016-09-16] MEDS: FLUTICASONE/SALMETEROL 250/50 (ADVAIR) 14 PUFF/1 INHALER INH SCH ×2 (10:43→21:42)
[2016-09-16] MEDS: FLUTICASONE PROPIONATE NA SPR 16 GM BTL NAE SCH (10:43)
[2016-09-16] MEDS: DORZOLAMIDE/TIMOLOL 22.3/6.8MG/ML 10 ML BTL OPB SCH ×2 (10:43→21:42)
[2016-09-16] MEDS: CALCIUM 600MG + VIT D 400 IU TAB PO SCH (10:44)
[2016-09-16] MEDS: PANTOprazole SOD 40 MG TAB PO SCH (10:44)
[2016-09-16] MEDS: MULTIVITAMIN TAB PO SCH (10:44)
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
[2016-09-16] MEDS ORDERED: CLONIDINE HCL 0.1 MG TAB PO PRN (16:45)
[2016-09-16] MEDS ORDERED: CLONIDINE HCL 0.1 MG TAB PO ONE (16:45)
[2016-09-16 16:46] VITALS: BP 181/139
--- NOTE | 2016-09-16 17:12 | Medical Consult ---
Consultation Date of Consultation: Sep 16, 2016. Attending Physician: Melvina Villavicencio MD Reason for Consultation: hypertensive urgency History of Present Illness This is a 56 y/o female with PMHx as outlined below who was admitted to psych unit for acute psychosis. BP was noted to be elevated today. Pt reports she has had situational elevated blood pressure in the past but she has no formal diagnosis of HTN and she has never been on any antihypertensives. She has noticed some mild bilat LE swelling which improved with elevation. Pt denies HERBERT , visual changes, diaphoresis, chest pain, SOB, abd pain, N/V, bowel or bladder issues, calf pain, lightheadedness/dizziness. Past Medical/Surgical History Medical Problems: (1) Asthma, mild persistent Status: Chronic (2) GERD (gastroesophageal reflux disease) Status: Chronic (3) Glaucoma Status: Chronic (4) S/P appendectomy Status: Resolved Surgical Problems: (1) H/O wisdom tooth extraction Status: Resolved (2) History of appendectomy Status: Resolved Family History Cancer Diabetes mellitus Heart disease Hypertension Social History Smoking Status: Never Smoker Alcohol Use: none Drug Use: none Marital Status: single Occupation Status: retired Allergies Coded Allergies: NO KNOWN DRUG ALLERGIES (Verified Allergy, Unknown, ., 09/11/16) Home Medications Active Reported Proventil Hfa (Albuterol Sulfate) 108 Mcg/Act Aer 2 Puffs INH Q6H PRN Fluticasone Propionate 50 Mcg/Act Spr 2 Sprays MELY QAM Oscal 500/200 D-3 (Calcium Carbonate-Vitamin D) 1 Tab Tab 1 Tab PO QAM Multivitamin (Multivitamins) Tab 1 Tab PO QAM Prilosec (Omeprazole) 20 Mg Capcr 20 Mg PO QAM [Zioptan] Drp 1 Drop OPB HS Advair Diskus 250/50 60 Dose (Fluticasone Prop/Salmeterol) 1 Ea Aerp 1 Puffs INH BID 90 Days Cosopt Oph (Dorzolamide Hcl-Timolol Maleat) 1 Shannan Shannan 1 Drop OPB BID Current Inpatient Medications Current Inpatient Medications Medications (Trade) Dose Ordered Sig/Kylie Route Start Time Stop Time Status Last Admin Dose Admin Acetaminophen (Tylenol Tab) 650 mg Q4H PRN PO 09/13/16 17:15 10/13/16 17:14 Bismuth Subsalicylate (Kaopectate Liqd) 15 ml PRN PRN PO 09/13/16 17:15 10/13/16 17:14 Al Hydroxide/Mg Hydroxide (Maalox Susp) 30 ml Q4H PRN PO 09/13/16 17:15 10/13/16 17:14 Magnesium Hydroxide (Milk Of Magnesia Susp) 30 ml DAILY PRN PO 09/13/16 17:15 10/13/16 17:14 Sodium Chloride (Newman Nasal Vance) PRN PRN NA 09/13/16 17:15 10/13/16 17:14 Hydroxyzine HCl (Vistaril Tab) 50 mg HSZ PRN PO 09/13/16 17:15 10/13/16 17:14 Hydroxyzine HCl (Vistaril Tab) 25 mg Q4H PRN PO 09/13/16 17:15 10/13/16 17:14 Albuterol (Ventolin Hfa Inhaler) 2 puffs Q6H PRN INH 09/13/16 17:15 10/13/16 17:14 Dorzolamide/ Timolol (Cosopt Op Soln) 1 drops BID OPB 09/13/16 22:00 10/13/16 21:59 09/16/16 10:43 1 DROPS Salmeterol Xinafoate/ Fluticasone (Advair Diskus 250/50 Inh) 1 puff BID INH 09/13/16 22:00 10/13/16 21:59 09/16/16 10:43 1 PUFF Fluticasone Propionate (Flonase Nasal Vance) 2 sprays QAM MELY 09/14/16 09:00 10/14/16 08:59 09/16/16 10:43 2 SPRAYS Multivitamins (Multivitamin Tab) 1 tab QAM PO 09/14/16 09:00 10/14/16 08:59 09/16/16 10:44 1 TAB Calcium/Vitamin D (Caltrate Plus Tab) 1 tab QAM PO 09/14/16 09:00 10/14/16 08:59 09/16/16 10:44 1 TAB Pantoprazole Sodium (Protonix Tab) 40 mg QAM PO 09/14/16 09:00 10/14/16 08:59 09/16/16 10:44 40 MG Miscellaneous Information (Order Awaiting Action) 1 ea QS N/A 09/14/16 00:00 10/14/16 00:00 Lorazepam (Ativan Tab) 1 mg Q6 PRN PO 09/13/16 17:15 10/13/16 17:14 Risperidone (Risperdal M Tab) 1 mg BID PRN PO 09/13/16 17:15 10/13/16 17:14 Haloperidol (Haldol Tab) 5 mg Q6 PRN PO 09/13/16 17:15 10/13/16 17:14 Benztropine Mesylate (Cogentin Tab) 0.5 mg Q6 PRN PO 09/13/16 17:15 10/13/16 17:14 Risperidone (Risperdal M Tab) 1 mg BID PO 09/14/16 22:00 10/14/16 21:59 Review of Systems Constitutional: No chills, No fatigue, No fever, No sweats, No weakness Eyes: + problem reported (no HERBERT), No diplopia, No worsening of vision ENT: No hearing loss Respiratory: No shortness of breath Cardiovascular: No chest pain Abdomen: No constipation, No diarrhea, No nausea, No pain, No vomiting Musculoskeletal: + swelling, No calf pain Genitourinary - Female: No dysuria Neurologic: No weakness Psychiatric: No depression symptoms Endocrine: No fatigue Hematologic / Lymphatic: No abnormal bleeding/bruising Integumentary: No new/changing skin lesions Physical Exam Date Time Temp Pulse Resp B/P Pulse Ox O2 Delivery O2 Flow Rate FiO2 09/16/16 06:55 36.5 101 16 164/110 111 155/96 General Appearance: WD/WN, no apparent distress, + pertinent finding (Pt is well-kempt, sitting in bed with burse at bedside ) Head: normocephalic, atraumatic Eyes: normal inspection ENT: hearing grossly normal Neck: supple Respiratory/Chest: chest non-tender, lungs clear, normal breath sounds, no respiratory distress Cardiovascular: regular rate, rhythm, no murmur Abdomen/GI: normal bowel sounds, non tender, soft Back: normal inspection Extremities/Musculoskelatal: normal inspection, no calf tenderness, + swelling (1+ swelling bilat) Neurologic/Psych: alert, normal mood/affect, oriented x 3 Skin: normal color, warm/dry Assessment & Plan HYPERTENSIVE URGENCY -181/139; no prior h/o HTN -pt denies HERBERT, visual changes, chest pain or SOB -recent echo 09/12 + mod LVH suggesting longstanding HTN -start Amlodipine 5mg daily -give clonidine now and continue PRN -if no resolution; can try nitro patch or transfer to medical floor for IV antihypertensives -monitor ACUTE PSYCHOSIS; UNCLEAR ETIOLOGY acute psychosis with no prior psych history; pt has 302 order -defer care to psych ASTHMA, MILD PERSISTENT -no evidence of acute exacerbation -cont inhalers GERD -cont PPI GLAUCOMA -cont dorzolamide and Zioptan DVT PROPHYLAXIS -SCDs CODE STATUS -FULL CODE DISPO Pt seen in collaboration with Dr. Park. Please see his addendum for further details. Thanks! Agree with above consult note. 56f with no formal diagnosis of HTN and currently in behavioral unit forn psychosis was found to have elevated BP. Recent echo shows moderate LVH. patient denies any visio changes or chest pain or sob or dizziness. Has swelling in lower extremities which is improving with leg elevation while sleeping. p/e Ge not in distress. 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 a/p Hypertensive urgency' recent echo moderate LVH-mostly long standing HTN started on amlodipine and tritrate based on response clonidine prn
[2016-09-16] MEDS ORDERED: AMLODIPINE BESYLATE 5 MG TAB PO ONE (17:15)
[2016-09-16 18:48] VITALS: BP 119/79; PULSE 105
[2016-09-16 21:17] VITALS: BP 124/84; PULSE 87
[2016-09-16 22:11] VITALS: BP 124/84; PULSE 87
[2016-09-17 06:54] VITALS: BP_SYST 135; BP_SYST 138; BP_DIAS 81; BP_DIAS 92; PULSE 80; PULSE 98; TEMP 36.6
[2016-09-17] MEDS: MULTIVITAMIN TAB PO SCH (08:40)
[2016-09-17] MEDS: PANTOprazole SOD 40 MG TAB PO SCH (08:40)
[2016-09-17] MEDS: FLUTICASONE/SALMETEROL 250/50 (ADVAIR) 14 PUFF/1 INHALER INH SCH ×2 (08:40→21:19)
[2016-09-17] MEDS: CALCIUM 600MG + VIT D 400 IU TAB PO SCH (08:40)
[2016-09-17] MEDS: FLUTICASONE PROPIONATE NA SPR 16 GM BTL NAE SCH (08:40)
[2016-09-17] MEDS: RISPERIDONE ODT 1MG PO SCH ×2 (08:40→21:20)
[2016-09-17] MEDS: AMLODIPINE BESYLATE 5 MG TAB PO SCH (08:40)
[2016-09-17] MEDS: DORZOLAMIDE/TIMOLOL 22.3/6.8MG/ML 10 ML BTL OPB SCH ×2 (08:40→21:19)
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
[2016-09-17 14:16] VITALS: BP 128/83; PULSE 108
--- NOTE | 2016-09-17 17:35 | Progress Note ---
Internal Med Progress Note Date of Service: Sep 17, 2016. Provider Documentation: SUBJECTIVE: Patient is seen and examined at bedside. States having no chest pain, palpitations, dizziness, headache, SOB, cough, wheezing. Feels well. OBJECTIVE: Vital Signs-as noted below Physical Exam: General Appearance:Obese, no apparent distress Head: normocephalic, Atraumatic Eyes: normal inspection, EOMI, PERRLA Neck: supple, Trachea midline Respiratory/Chest: Normal breath sounds, CTA, No accessory muscle use Cardiovascular: S1, S2, + Tachycardia, No murmur Abdomen/GI:Soft, Non tender, Bowel sounds present Extremities/Musculoskelatal:normal inspection, trace edema Neurologic/Psych:AAOX3, grossly no focal neurological deficits Skin: normal color, warm Lab data as noted below. ASSESSMENT & PLAN: HYPERTENSIVE URGENCY Resolved No prior h/o HTN Last ECHO in 09/12 showed moderate LVH suggesting longstanding HTN Continue Amlodipine 5mg daily clonidine PRN Continue to monitor Current BP:128/83 ACUTE PSYCHOSIS; UNCLEAR ETIOLOGY acute psychosis with no prior psych history; pt has 302 order Management per primary team ASTHMA, MILD PERSISTENT No evidence of exacerbation continue inhalers GERD continue PPI GLAUCOMA continue dorzolamide and Zioptan DVT PROPHYLAXIS SCDs CODE STATUS FULL CODE Vital Signs: Date Time Temp Pulse Resp B/P Pulse Ox O2 Delivery O2 Flow Rate FiO2 09/17/16 14:16 108 128/83 09/17/16 06:54 36.6 80 17 138/81 98 135/92 09/16/16 22:11 87 16 124/84 09/16/16 21:17 87 16 124/84 09/16/16 18:48 105 18 119/79
[2016-09-17 22:54] VITALS: BP 148/90; PULSE 103
[2016-09-18 06:54] VITALS: BP_SYST 144; BP_SYST 151; BP_DIAS 85; BP_DIAS 96; PULSE 103; PULSE 84; TEMP 36.5
[2016-09-18] MEDS: CALCIUM 600MG + VIT D 400 IU TAB PO SCH (08:40)
[2016-09-18] MEDS: FLUTICASONE PROPIONATE NA SPR 16 GM BTL NAE SCH (08:40)
[2016-09-18] MEDS: FLUTICASONE/SALMETEROL 250/50 (ADVAIR) 14 PUFF/1 INHALER INH SCH ×2 (08:40→21:22)
[2016-09-18] MEDS: DORZOLAMIDE/TIMOLOL 22.3/6.8MG/ML 10 ML BTL OPB SCH ×2 (08:40→21:23)
[2016-09-18] MEDS: MULTIVITAMIN TAB PO SCH (08:41)
[2016-09-18] MEDS: AMLODIPINE BESYLATE 5 MG TAB PO SCH (08:41)
[2016-09-18] MEDS: PANTOprazole SOD 40 MG TAB PO SCH (08:41)
[2016-09-18] MEDS: RISPERIDONE ODT 1MG PO SCH ×2 (08:41→21:23)
[2016-09-18 09:04] LABS: CHOLESTEROL/HDL RATIO 2.4
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
[2016-09-18 14:29] VITALS: BP 145/89; PULSE 99
--- NOTE | 2016-09-18 15:39 | Progress Note ---
Internal Med Progress Note Date of Service: Sep 18, 2016. Provider Documentation: SUBJECTIVE: Patient is seen and examined at bedside. Feels well. Denies any dizziness, headache, SOB, chest pain. States improved leg swelling. OBJECTIVE: Vital Signs-as noted below Physical Exam: General Appearance:Obese, no apparent distress Head: normocephalic, Atraumatic Eyes: normal inspection, EOMI, PERRLA Neck: supple, Trachea midline Respiratory/Chest: Normal breath sounds, CTA, No accessory muscle use Cardiovascular: S1, S2, + Tachycardia, No murmur Abdomen/GI:Soft, Non tender, Bowel sounds present Extremities/Musculoskelatal:normal inspection, trace edema Neurologic/Psych:AAOX3, grossly no focal neurological deficits Skin: normal color, warm Lab data as noted below. ASSESSMENT & PLAN: HYPERTENSIVE URGENCY Resolved No prior h/o HTN Last ECHO in 09/12 showed moderate LVH suggesting longstanding HTN Continue Amlodipine 5mg daily clonidine PRN Continue to monitor BP slightly high Recommended low salt diet Will consider to increase amlodipine dose if needed ACUTE PSYCHOSIS; UNCLEAR ETIOLOGY acute psychosis with no prior psych history; pt has 302 order Management per primary team ASTHMA, MILD PERSISTENT No evidence of exacerbation continue inhalers GERD continue PPI GLAUCOMA continue dorzolamide and Zioptan DVT PROPHYLAXIS SCDs CODE STATUS FULL CODE Vital Signs: Date Time Temp Pulse Resp B/P Pulse Ox O2 Delivery O2 Flow Rate FiO2 09/18/16 14:29 99 18 145/89 09/18/16 06:54 36.5 84 18 144/85 103 151/96 09/17/16 22:54 103 148/90 Lab Results: Results Past 24 Hours Test 09/18/16 08:13 Range/Units Fasting Glucose 96 70-99 mg/dl Triglycerides Level 90 0-150 mg/dl Cholesterol Level 152 0-200 mg/dl HDL Cholesterol 63 mg/dl LDL Cholesterol, Calculated 71 mg/dl VLDL Cholesterol, Calculated 18 mg/dl Cholesterol/HDL Ratio 2.4
[2016-09-18 22:37] VITALS: BP 132/87; PULSE 99; TEMP 37
[2016-09-19 07:02] VITALS: BP_SYST 117; BP_SYST 150; BP_DIAS 83; BP_DIAS 91; PULSE 109; PULSE 88; TEMP 36.4
[2016-09-19] MEDS: FLUTICASONE/SALMETEROL 250/50 (ADVAIR) 14 PUFF/1 INHALER INH SCH ×2 (07:44→21:18)
[2016-09-19] MEDS: FLUTICASONE PROPIONATE NA SPR 16 GM BTL NAE SCH (07:44)
[2016-09-19] MEDS: CALCIUM 600MG + VIT D 400 IU TAB PO SCH (07:45)
[2016-09-19] MEDS: DORZOLAMIDE/TIMOLOL 22.3/6.8MG/ML 10 ML BTL OPB SCH ×2 (07:45→21:18)
[2016-09-19] MEDS: MULTIVITAMIN TAB PO SCH (07:45)
[2016-09-19] MEDS: RISPERIDONE ODT 1MG PO SCH ×2 (07:46→21:19)
[2016-09-19] MEDS: AMLODIPINE BESYLATE 5 MG TAB PO SCH (07:46)
[2016-09-19] MEDS: PANTOprazole SOD 40 MG TAB PO SCH (07:46)
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
[2016-09-19 14:04] VITALS: BP 130/66; PULSE 92
--- NOTE | 2016-09-19 18:15 | Progress Note ---
Internal Med Progress Note Date of Service: Sep 19, 2016. Provider Documentation: SUBJECTIVE: Patient is seen and examined at bedside. Doing well. Offers no complaints. OBJECTIVE: Vital Signs-as noted below Physical Exam: General Appearance:Obese, no apparent distress Head: normocephalic, Atraumatic Eyes: normal inspection, EOMI, PERRLA Neck: supple, Trachea midline Respiratory/Chest: Normal breath sounds, CTA, No accessory muscle use Cardiovascular: S1, S2, + Tachycardia, No murmur Abdomen/GI:Soft, Non tender, Bowel sounds present Extremities/Musculoskelatal:normal inspection, trace edema Neurologic/Psych:AAOX3, grossly no focal neurological deficits Skin: normal color, warm Lab data as noted below. ASSESSMENT & PLAN: HYPERTENSIVE URGENCY Resolved No prior h/o HTN Last ECHO in 09/12 showed moderate LVH suggesting longstanding HTN clonidine PRN Continue to monitor BP better continue low salt diet Continue Amlodipine 5mg daily for now ACUTE PSYCHOSIS; UNCLEAR ETIOLOGY acute psychosis with no prior psych history; pt has 302 order Management per primary team ASTHMA, MILD PERSISTENT No evidence of exacerbation continue inhalers GERD continue PPI GLAUCOMA continue dorzolamide and Zioptan DVT PROPHYLAXIS SCDs CODE STATUS FULL CODE Vital Signs: Date Time Temp Pulse Resp B/P Pulse Ox O2 Delivery O2 Flow Rate FiO2 09/19/16 14:04 92 14 130/66 09/19/16 07:02 36.4 88 16 150/91 109 117/83 09/18/16 22:37 37.0 99 16 132/87
[2016-09-19 22:05] VITALS: BP 138/94; PULSE 94
[2016-09-20 07:04] VITALS: BP_SYST 127; BP_SYST 131; BP_DIAS 83; BP_DIAS 90; PULSE 101; PULSE 102; TEMP 36.5
[2016-09-20] MEDS: FLUTICASONE PROPIONATE NA SPR 16 GM BTL NAE SCH (08:00)
[2016-09-20] MEDS: FLUTICASONE/SALMETEROL 250/50 (ADVAIR) 14 PUFF/1 INHALER INH SCH ×2 (08:00→21:21)
[2016-09-20] MEDS: MULTIVITAMIN TAB PO SCH (08:01)
[2016-09-20] MEDS: CALCIUM 600MG + VIT D 400 IU TAB PO SCH (08:01)
[2016-09-20] MEDS: DORZOLAMIDE/TIMOLOL 22.3/6.8MG/ML 10 ML BTL OPB SCH ×2 (08:01→21:21)
[2016-09-20] MEDS: PANTOprazole SOD 40 MG TAB PO SCH (08:02)
[2016-09-20] MEDS: AMLODIPINE BESYLATE 5 MG TAB PO SCH (08:02)
[2016-09-20] MEDS: RISPERIDONE ODT 1MG PO SCH ×2 (08:02→21:21)
[2016-09-20 14:07] VITALS: BP 127/88; PULSE 101
--- NOTE | 2016-09-20 16:01 | Progress Note ---
Internal Med Progress Note Date of Service: Sep 20, 2016. Provider Documentation: SUBJECTIVE: Patient is seen and examined at bedside. Feels well. Denies any chest pain, SOB , palpitations. OBJECTIVE: Vital Signs-as noted below Physical Exam: General Appearance:Obese, no apparent distress Head: normocephalic, Atraumatic Eyes: normal inspection, EOMI, PERRLA Neck: supple, Trachea midline Respiratory/Chest: Normal breath sounds, CTA, No accessory muscle use Cardiovascular: S1, S2, + Tachycardia, No murmur Abdomen/GI:Soft, Non tender, Bowel sounds present Extremities/Musculoskelatal:normal inspection, trace edema Neurologic/Psych:AAOX3, grossly no focal neurological deficits Skin: normal color, warm Lab data as noted below. ASSESSMENT & PLAN: HYPERTENSIVE URGENCY Resolved No prior h/o HTN Last ECHO in 09/12 showed moderate LVH suggesting longstanding HTN clonidine PRN Continue to monitor BP well controlled continue low salt diet Continue Amlodipine 5mg daily SINUS TACHYCARDIA: Likely secondary to psych issues Denies any symptoms ACUTE PSYCHOSIS; UNCLEAR ETIOLOGY acute psychosis with no prior psych history; pt has 302 order Management per primary team ASTHMA, MILD PERSISTENT No evidence of exacerbation continue inhalers GERD continue PPI GLAUCOMA continue dorzolamide and Zioptan DVT PROPHYLAXIS SCDs CODE STATUS FULL CODE Vital Signs: Date Time Temp Pulse Resp B/P Pulse Ox O2 Delivery O2 Flow Rate FiO2 09/20/16 14:07 101 16 127/88 09/20/16 07:04 36.5 102 18 131/90 101 127/83 09/19/16 22:05 94 138/94
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
[2016-09-20 22:02] VITALS: BP 130/93; PULSE 103
[2016-09-21 07:01] VITALS: BP_SYST 98; BP_DIAS 64; BP_DIAS 68; PULSE 105; PULSE 75; TEMP 36.7
[2016-09-21] MEDS: DORZOLAMIDE/TIMOLOL 22.3/6.8MG/ML 10 ML BTL OPB SCH ×2 (09:03→21:09)
[2016-09-21] MEDS: FLUTICASONE PROPIONATE NA SPR 16 GM BTL NAE SCH (09:03)
[2016-09-21] MEDS: CALCIUM 600MG + VIT D 400 IU TAB PO SCH (09:03)
[2016-09-21] MEDS: FLUTICASONE/SALMETEROL 250/50 (ADVAIR) 14 PUFF/1 INHALER INH SCH ×2 (09:03→21:10)
[2016-09-21] MEDS: RISPERIDONE ODT 1MG PO SCH ×2 (09:04→21:09)
[2016-09-21] MEDS: PANTOprazole SOD 40 MG TAB PO SCH (09:04)
[2016-09-21] MEDS: MULTIVITAMIN TAB PO SCH (09:04)
[2016-09-21 09:10] VITALS: BP_SYST 120; BP_SYST 133; BP_DIAS 83; BP_DIAS 86
[2016-09-21] MEDS: AMLODIPINE BESYLATE 5 MG TAB PO SCH (09:11)
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
[2016-09-21] MEDS ORDERED: HALOPERIDOL LACTATE 5 MG/ML 1 ML VIAL IM PRN (12:00)
[2016-09-21 14:28] VITALS: BP 121/82; PULSE 89
--- NOTE | 2016-09-21 16:14 | Progress Note ---
Internal Med Progress Note Date of Service: Sep 21, 2016. Provider Documentation: SUBJECTIVE: Patient is seen and examined at bedside. Denies any chest pain, SOB, Dizziness, blurry vision. " I feel fine" OBJECTIVE: Vital Signs-as noted below Physical Exam: General Appearance:Obese, no apparent distress Head: normocephalic, Atraumatic Eyes: normal inspection, EOMI, PERRLA Neck: supple, Trachea midline Respiratory/Chest: Normal breath sounds, CTA, No accessory muscle use Cardiovascular: S1, S2, No murmur Abdomen/GI:Soft, Non tender, Bowel sounds present Extremities/Musculoskelatal:normal inspection, trace edema Neurologic/Psych:AAOX3, grossly no focal neurological deficits Skin: normal color, warm Lab data as noted below. ASSESSMENT & PLAN: HYPERTENSIVE URGENCY Resolved No prior h/o HTN Last ECHO in 09/12 showed moderate LVH suggesting longstanding HTN clonidine PRN Continue to monitor BP well controlled continue low salt diet Continue Amlodipine 5mg daily No plans for changing HTN meds for now Medically Stable. Will sign off. Please call with questions SINUS TACHYCARDIA: Likely secondary to psych issues Denies any symptoms ACUTE PSYCHOSIS; UNCLEAR ETIOLOGY acute psychosis with no prior psych history; pt has 302 order Management per primary team ASTHMA, MILD PERSISTENT No evidence of exacerbation continue inhalers GERD continue PPI GLAUCOMA continue dorzolamide and Zioptan DVT PROPHYLAXIS SCDs CODE STATUS FULL CODE Vital Signs: Date Time Temp Pulse Resp B/P Pulse Ox O2 Delivery O2 Flow Rate FiO2 09/21/16 14:28 89 121/82 09/21/16 09:10 133/83 120/86 09/21/16 07:01 36.7 75 16 98/68 105 98/64 09/20/16 22:02 103 130/93
[2016-09-21 22:04] VITALS: BP 137/85; PULSE 93
[2016-09-22 06:54] VITALS: BP_SYST 137; BP_SYST 138; BP_DIAS 88; PULSE 87; PULSE 98; TEMP 36.3
[2016-09-22] MEDS: MULTIVITAMIN TAB PO SCH (07:44)
[2016-09-22] MEDS: AMLODIPINE BESYLATE 5 MG TAB PO SCH (07:45)
[2016-09-22] MEDS: CALCIUM 600MG + VIT D 400 IU TAB PO SCH (07:45)
[2016-09-22] MEDS: PANTOprazole SOD 40 MG TAB PO SCH (07:45)
[2016-09-22] MEDS: RISPERIDONE ODT 1MG PO SCH (07:45)
[2016-09-22] MEDS: DORZOLAMIDE/TIMOLOL 22.3/6.8MG/ML 10 ML BTL OPB SCH ×2 (07:46→21:44)
[2016-09-22] MEDS: FLUTICASONE/SALMETEROL 250/50 (ADVAIR) 14 PUFF/1 INHALER INH SCH ×2 (07:46→21:44)
[2016-09-22] MEDS: FLUTICASONE PROPIONATE NA SPR 16 GM BTL NAE SCH (07:46)
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
[2016-09-22 14:30] VITALS: BP 136/80; PULSE 93
[2016-09-22 21:48] VITALS: BP 118/83; PULSE 109
[2016-09-22] MEDS ORDERED: RISPERIDONE ODT 1MG PO SCH (22:00)
[2016-09-22 22:04] VITALS: BP 118/83; PULSE 109
[2016-09-23 06:59] VITALS: BP_SYST 147; BP_SYST 153; BP_DIAS 95; PULSE 102; PULSE 92; TEMP 36.7
[2016-09-23] MEDS: FLUTICASONE PROPIONATE NA SPR 16 GM BTL NAE SCH (08:38)
[2016-09-23] MEDS: DORZOLAMIDE/TIMOLOL 22.3/6.8MG/ML 10 ML BTL OPB SCH ×2 (08:38→21:18)
[2016-09-23] MEDS: FLUTICASONE/SALMETEROL 250/50 (ADVAIR) 14 PUFF/1 INHALER INH SCH ×2 (08:38→21:18)
[2016-09-23] MEDS ORDERED: RISPERIDONE ODT 1MG PO SCH ×2 (09:00→22:00)
[2016-09-23] MEDS: PANTOprazole SOD 40 MG TAB PO SCH (09:20)
[2016-09-23] MEDS: CALCIUM 600MG + VIT D 400 IU TAB PO SCH (09:20)
[2016-09-23] MEDS: AMLODIPINE BESYLATE 5 MG TAB PO SCH (09:20)
[2016-09-23] MEDS: MULTIVITAMIN TAB PO SCH (09:20)
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
[2016-09-23 14:50] VITALS: BP 124/74; PULSE 90
[2016-09-23 16:03] VITALS: TEMP 36.9
[2016-09-23 20:49] VITALS: BP 131/81; PULSE 91
[2016-09-23] MEDS: RISPERIDONE ODT 1MG PO SCH (21:19)
[2016-09-23 22:25] VITALS: BP 131/81; PULSE 102; PULSE 91; TEMP 36.9
[2016-09-24 07:01] VITALS: BP_SYST 127; BP_SYST 144; BP_DIAS 88; BP_DIAS 89; PULSE 106; PULSE 99; TEMP 36.4
[2016-09-24] MEDS: FLUTICASONE/SALMETEROL 250/50 (ADVAIR) 14 PUFF/1 INHALER INH SCH ×2 (08:16→21:02)
[2016-09-24] MEDS: FLUTICASONE PROPIONATE NA SPR 16 GM BTL NAE SCH (08:16)
[2016-09-24] MEDS: MULTIVITAMIN TAB PO SCH (08:17)
[2016-09-24] MEDS: CALCIUM 600MG + VIT D 400 IU TAB PO SCH (08:17)
[2016-09-24] MEDS: DORZOLAMIDE/TIMOLOL 22.3/6.8MG/ML 10 ML BTL OPB SCH ×2 (08:17→21:03)
[2016-09-24] MEDS: RISPERIDONE ODT 1MG PO SCH ×2 (08:18→21:03)
[2016-09-24] MEDS: PANTOprazole SOD 40 MG TAB PO SCH (08:18)
[2016-09-24] MEDS: AMLODIPINE BESYLATE 5 MG TAB PO SCH (08:18)
[2016-09-24] MEDS ORDERED: RISPERIDONE ODT 1MG PO SCH (09:00)
[2016-09-24] MEDS ORDERED: GUAIFENESIN 600 MG TABCR PO ONE (09:58)
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
[2016-09-24 14:09] VITALS: BP 130/96; PULSE 96
[2016-09-24] MEDS: GUAIFENESIN 600 MG TABCR PO SCH (21:02)
[2016-09-24 21:31] VITALS: BP 126/84; PULSE 92; TEMP 36.4
[2016-09-24 22:01] VITALS: BP 126/84; PULSE 92; TEMP 36.4
[2016-09-25 07:03] VITALS: BP_SYST 113; BP_SYST 120; BP_DIAS 79; BP_DIAS 83; PULSE 101; PULSE 90; TEMP 36.6
[2016-09-25] MEDS: FLUTICASONE/SALMETEROL 250/50 (ADVAIR) 14 PUFF/1 INHALER INH SCH ×2 (08:52→21:18)
[2016-09-25] MEDS: FLUTICASONE PROPIONATE NA SPR 16 GM BTL NAE SCH (08:52)
[2016-09-25] MEDS: MULTIVITAMIN TAB PO SCH (08:53)
[2016-09-25] MEDS: GUAIFENESIN 600 MG TABCR PO SCH ×2 (08:53→21:18)
[2016-09-25] MEDS: AMLODIPINE BESYLATE 5 MG TAB PO SCH (08:53)
[2016-09-25] MEDS: CALCIUM 600MG + VIT D 400 IU TAB PO SCH (08:53)
[2016-09-25] MEDS: DORZOLAMIDE/TIMOLOL 22.3/6.8MG/ML 10 ML BTL OPB SCH ×2 (08:53→21:19)
[2016-09-25] MEDS: PANTOprazole SOD 40 MG TAB PO SCH (08:53)
[2016-09-25] MEDS: RISPERIDONE ODT 1MG PO SCH ×2 (08:53→21:19)
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
[2016-09-25 14:53] VITALS: BP 119/91; PULSE 85; TEMP 36.8
[2016-09-25 22:03] VITALS: BP 114/72; PULSE 101
[2016-09-26 06:50] VITALS: BP_SYST 118; BP_SYST 122; BP_DIAS 82; BP_DIAS 84; PULSE 83; PULSE 88; TEMP 36.8
[2016-09-26] MEDS: FLUTICASONE/SALMETEROL 250/50 (ADVAIR) 14 PUFF/1 INHALER INH SCH ×2 (08:31→21:28)
[2016-09-26] MEDS: RISPERIDONE ODT 1MG PO SCH ×2 (08:31→21:28)
[2016-09-26] MEDS: PANTOprazole SOD 40 MG TAB PO SCH (08:31)
[2016-09-26] MEDS: AMLODIPINE BESYLATE 5 MG TAB PO SCH (08:32)
[2016-09-26] MEDS: MULTIVITAMIN TAB PO SCH (08:32)
[2016-09-26] MEDS: CALCIUM 600MG + VIT D 400 IU TAB PO SCH (08:32)
[2016-09-26] MEDS: GUAIFENESIN 600 MG TABCR PO SCH ×2 (08:32→21:28)
[2016-09-26] MEDS: FLUTICASONE PROPIONATE NA SPR 16 GM BTL NAE SCH (08:35)
[2016-09-26] MEDS: DORZOLAMIDE/TIMOLOL 22.3/6.8MG/ML 10 ML BTL OPB SCH ×2 (08:35→21:28)
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
[2016-09-26 14:30] VITALS: BP 118/80; PULSE 88
[2016-09-26 22:24] VITALS: BP 112/76; PULSE 88
[2016-09-27 06:57] VITALS: BP_SYST 106; BP_SYST 113; BP_DIAS 68; BP_DIAS 70; PULSE 80; PULSE 90; TEMP 36.7
[2016-09-27] MEDS: FLUTICASONE PROPIONATE NA SPR 16 GM BTL NAE SCH (09:06)
[2016-09-27] MEDS: FLUTICASONE/SALMETEROL 250/50 (ADVAIR) 14 PUFF/1 INHALER INH SCH ×2 (09:06→22:00)
[2016-09-27] MEDS: GUAIFENESIN 600 MG TABCR PO SCH ×2 (09:07→22:00)
[2016-09-27] MEDS: PANTOprazole SOD 40 MG TAB PO SCH (09:07)
[2016-09-27] MEDS: MULTIVITAMIN TAB PO SCH (09:07)
[2016-09-27] MEDS: DORZOLAMIDE/TIMOLOL 22.3/6.8MG/ML 10 ML BTL OPB SCH ×2 (09:07→22:01)
[2016-09-27] MEDS: RISPERIDONE ODT 1MG PO SCH ×2 (09:07→22:00)
[2016-09-27] MEDS: AMLODIPINE BESYLATE 5 MG TAB PO SCH (09:07)
[2016-09-27] MEDS: CALCIUM 600MG + VIT D 400 IU TAB PO SCH (09:07)
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
[2016-09-27 14:25] VITALS: BP 121/83; PULSE 90
[2016-09-27 22:09] VITALS: BP 118/78; PULSE 82
[2016-09-28 06:53] VITALS: BP_SYST 128; BP_SYST 136; BP_DIAS 85; PULSE 83; PULSE 92; TEMP 36.5
[2016-09-28] MEDS: PANTOprazole SOD 40 MG TAB PO SCH (07:50)
[2016-09-28] MEDS: AMLODIPINE BESYLATE 5 MG TAB PO SCH (07:50)
[2016-09-28] MEDS: CALCIUM 600MG + VIT D 400 IU TAB PO SCH (07:50)
[2016-09-28] MEDS: RISPERIDONE ODT 1MG PO SCH ×2 (07:50→21:55)
[2016-09-28] MEDS: GUAIFENESIN 600 MG TABCR PO SCH ×2 (07:50→21:54)
[2016-09-28] MEDS: DORZOLAMIDE/TIMOLOL 22.3/6.8MG/ML 10 ML BTL OPB SCH ×2 (07:50→21:55)
[2016-09-28] MEDS: MULTIVITAMIN TAB PO SCH (07:50)
[2016-09-28] MEDS: FLUTICASONE PROPIONATE NA SPR 16 GM BTL NAE SCH (07:50)
[2016-09-28] MEDS: FLUTICASONE/SALMETEROL 250/50 (ADVAIR) 14 PUFF/1 INHALER INH SCH ×2 (07:51→21:54)
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
[2016-09-28 22:00] VITALS: BP 116/78; PULSE 74
[2016-09-29 07:00] VITALS: BP_SYST 118; BP_SYST 132; BP_DIAS 81; BP_DIAS 89; PULSE 73; PULSE 89; TEMP 36.6
[2016-09-29] MEDS: FLUTICASONE PROPIONATE NA SPR 16 GM BTL NAE SCH (08:11)
[2016-09-29] MEDS: FLUTICASONE/SALMETEROL 250/50 (ADVAIR) 14 PUFF/1 INHALER INH SCH ×2 (08:11→21:16)
[2016-09-29] MEDS: DORZOLAMIDE/TIMOLOL 22.3/6.8MG/ML 10 ML BTL OPB SCH ×2 (08:12→21:17)
[2016-09-29] MEDS: CALCIUM 600MG + VIT D 400 IU TAB PO SCH (08:12)
[2016-09-29] MEDS: GUAIFENESIN 600 MG TABCR PO SCH ×2 (08:12→21:16)
[2016-09-29] MEDS: MULTIVITAMIN TAB PO SCH (08:12)
[2016-09-29] MEDS: PANTOprazole SOD 40 MG TAB PO SCH (08:13)
[2016-09-29] MEDS: AMLODIPINE BESYLATE 5 MG TAB PO SCH (08:13)
[2016-09-29] MEDS: RISPERIDONE ODT 1MG PO SCH (08:13)
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
[2016-09-29 14:20] VITALS: BP 123/84; PULSE 89
[2016-09-29] MEDS ORDERED: RISPERIDONE ODT 1MG PO ONE (22:00)
[2016-09-29 22:03] VITALS: BP 109/73; PULSE 76
[2016-09-30 07:03] VITALS: BP_SYST 128; BP_SYST 130; BP_DIAS 85; BP_DIAS 90; PULSE 78; PULSE 81; TEMP 36.6
[2016-09-30] MEDS: PANTOprazole SOD 40 MG TAB PO SCH (08:31)
[2016-09-30] MEDS: GUAIFENESIN 600 MG TABCR PO SCH ×2 (08:31→21:23)
[2016-09-30] MEDS: CALCIUM 600MG + VIT D 400 IU TAB PO SCH (08:31)
[2016-09-30] MEDS: MULTIVITAMIN TAB PO SCH (08:31)
[2016-09-30] MEDS: FLUTICASONE PROPIONATE NA SPR 16 GM BTL NAE SCH (08:31)
[2016-09-30] MEDS: FLUTICASONE/SALMETEROL 250/50 (ADVAIR) 14 PUFF/1 INHALER INH SCH ×2 (08:31→21:23)
[2016-09-30] MEDS: AMLODIPINE BESYLATE 5 MG TAB PO SCH (08:31)
[2016-09-30] MEDS: DORZOLAMIDE/TIMOLOL 22.3/6.8MG/ML 10 ML BTL OPB SCH ×2 (08:35→21:23)
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
[2016-09-30 14:14] VITALS: BP 116/81; PULSE 87
[2016-09-30 21:21] VITALS: BP 113/79; PULSE 80
[2016-09-30] MEDS ORDERED: RISPERIDONE ODT 1MG PO SCH (22:00)
[2016-09-30 22:07] VITALS: BP 118/87; PULSE 83
[2016-10-01 06:53] VITALS: BP_SYST 106; BP_SYST 122; BP_DIAS 72; BP_DIAS 82; PULSE 83; PULSE 86; TEMP 36.7
[2016-10-01] MEDS: DORZOLAMIDE/TIMOLOL 22.3/6.8MG/ML 10 ML BTL OPB SCH (08:16)
[2016-10-01] MEDS: FLUTICASONE/SALMETEROL 250/50 (ADVAIR) 14 PUFF/1 INHALER INH SCH (08:16)
[2016-10-01] MEDS: FLUTICASONE PROPIONATE NA SPR 16 GM BTL NAE SCH (08:16)
[2016-10-01] MEDS: CALCIUM 600MG + VIT D 400 IU TAB PO SCH (08:16)
[2016-10-01] MEDS: PANTOprazole SOD 40 MG TAB PO SCH (08:17)
[2016-10-01] MEDS: AMLODIPINE BESYLATE 5 MG TAB PO SCH (08:17)
[2016-10-01] MEDS: MULTIVITAMIN TAB PO SCH (08:17)
[2016-10-01] MEDS: GUAIFENESIN 600 MG TABCR PO SCH (08:17)
[2016-10-01] MEDS ORDERED: NRV5 PO (08:48)
[2016-10-01] MEDS ORDERED: RSP3 PO (08:48)
[2016-10-01] MEDS ORDERED: RSP2 PO (08:48)
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
[2016-10-01 14:01] VITALS: BP 121/83; PULSE 99
== END 2016-10-01 14:45 | disposition home or self-care (01) | DRG 885 ==
LOC: C.MHU 16:39
PROVIDERS: ADMIT Psychiatry & Neurology Child & Adolescent Psychiatry; ATTEND Psychiatry & Neurology Psychiatry
DX: F29 Unspecified psychosis not due to a substance or known physiological condition (principal); Z68.43 Body mass index [BMI] 50.0-59.9, adult; F22 Delusional disorders; I10 Essential (primary) hypertension; I16.0 Hypertensive urgency; E66.9 Obesity, unspecified; I51.7 Cardiomegaly; H40.9 Unspecified glaucoma; K21.9 Gastro-esophageal reflux disease without esophagitis; J45.909 Unspecified asthma, uncomplicated; J32.9 Chronic sinusitis, unspecified; R00.0 Tachycardia, unspecified; Z79.51 Long term (current) use of inhaled steroids; Z79.899 Other long term (current) drug therapy

== ENCOUNTER → 2016-11-10 | Outpatient (CLI) | payer BC ==
[~2016-11-10] MED LIST changes: +NRV5 PO; +RSP2 PO; +RSP3 PO
== END | disposition home or self-care (01) ==
LOC: C.PAPS 14:04
PROVIDERS: ATTEND Obstetrics & Gynecology
DX: Z01.419 Encounter for gynecological examination (general) (routine) without abnormal findings (principal)

== ENCOUNTER → 2016-12-16 | Outpatient (CLI) | payer BC ==
--- NOTE | 2016-12-16 14:53 | MAMMOGRAPHY REPORT ---
BILATERAL DIGITAL SCREENING MAMMOGRAM WITH CAD: 12/16/2016 CLINICAL HISTORY: Routine screening. Patient has no complaints. TECHNIQUE: Current study was also evaluated with a Computer Aided Detection (CAD) system. Bilatera l CC and MLO views were obtained. COMPARISON: Comparison is made to exams dated: 11/28/2015 mammogram, 11/27/2014 mammogram, 11/23/2013 mammogram, 10/17/2012 mammogram, 09/18/2011 mammogram, and 09/17/2010 mammogram - [facility]. BREAST COMPOSITION: There are scattered areas of fibroglandular density in both breasts. FINDINGS: No suspicious masses, calcifications, or areas of architectural distortion are noted in e ither breast. There has been no significant interval change compared to prior exams. A biopsy marke r clip is again noted in the right upper outer quadrant. Bilateral scattered benign-appearing calci fications are not significantly changed. IMPRESSION: ACR BI-RADS CATEGORY 2: BENIGN There is no mammographic evidence of malignancy. A 1 year screening mammogram is recommended. The p atient will receive written notification of the results. Approximately 10% of breast cancers are not detected with mammography. A negative mammographic repor t should not delay biopsy if a clinically suggestive mass is present. Tiny Campbell M.D. ah/:12/16/2016 12:52:07 Inpatient Pharmacist: Yvonne STARK(R)(M), [facility] letter sent: Normal 1/2 BI-RADS Code: ACR BI-RADS Category 2: Benign
== END | disposition home or self-care (01) ==
LOC: C.MAMM 11:49
PROVIDERS: ATTEND Obstetrics & Gynecology
DX: Z12.31 Encounter for screening mammogram for malignant neoplasm of breast (principal)

== ENCOUNTER → 2017-12-21 | Outpatient (CLI) | payer OTHER ==
--- NOTE | 2017-12-22 14:21 | MAMMOGRAPHY REPORT ---
BILATERAL DIGITAL SCREENING MAMMOGRAM TOMOSYNTHESIS WITH CAD: 12/21/2017 CLINICAL HISTORY: Routine screening. Patient has no complaints. TECHNIQUE: Breast tomosynthesis in addition to standard 2D mammography was performed. Current study was also evaluated with a Computer Aided Detection (CAD) system. COMPARISON: Comparison is made to exams dated: 12/16/2016 mammogram, 11/28/2015 mammogram, 11/27/2014 m ammogram, 11/23/2013 mammogram, 10/17/2012 mammogram, and 09/18/2011 mammogram - [facility] enter. BREAST COMPOSITION: There are scattered areas of fibroglandular density in both breasts. FINDINGS: There is a stable rashawn-shaped biopsy marker clip in the upper outer posterior right breast, and stable focal asymmetry in the upper outer posterior left breast. Scattered benign-appearing punc bolaños microcalcifications. No suspicious mass, architectural distortion or cluster of microcalcificat ions is seen. IMPRESSION: ACR BI-RADS CATEGORY 1: NEGATIVE There is no mammographic evidence of malignancy. A 1 year screening mammogram is recommended. The pa tient will receive written notification of the results. Approximately 10% of breast cancers are not detected with mammography. A negative mammographic report should not delay biopsy if a clinically suggestive mass is present. Dilcia Solares M.D. ay/:12/21/2017 19:11:06 Bronzer: Maria C MALDONADO)(Azalia), [facility] letter sent: Normal 1/2 BI-RADS Code: ACR BI-RADS Category 1: Negative
== END | disposition home or self-care (01) ==
LOC: C.MAMM 08:14
PROVIDERS: ATTEND Obstetrics & Gynecology
DX: Z12.31 Encounter for screening mammogram for malignant neoplasm of breast (principal)